=== PATIENT | female | born 1955 | race Caucasian/White ===

== ENCOUNTER 2018-08-11 12:06 | Outpatient (CLI) | payer OTHER, SELFPAY ==
[2018-08-11 12:53] LABS: Hemoglobin A1C 7.9 % (4.5-6.2)
[2018-08-11 13:01] LABS: Anion Gap 12.7 mmol/L (3-11); BUN 13 mg/dL (7-18); CO2 25.3 mmol/L (21.0-32.0); CREATININE 1.03 mg/dL (0.55-1.02); Chloride 101 mmol/L (98-107); Estimated GFR 54.48 (mL/min/1.73m2); Sodium 139 mmol/L (136-145)
== END 2018-08-11 12:26 ==
PROVIDERS: PCP General Practice; Visit Provider General Practice
DX: I10 Essential (primary) hypertension (principal); E10.9 Type 1 diabetes mellitus without complications
CPT/HCPCS: 36415; 80051; 84520; 82565; 83036

== ENCOUNTER 2018-10-29 09:21 | Emergency (ER) | payer OTHER, SELFPAY ==
[2018-10-29 09:25] VITALS: BP 144/88; PULSE 68; RESP 18; TEMP 36.2; O2SAT 98
--- NOTE | 2018-10-29 09:45 | W.ED.GENAD ---
Discharge Plan Disposition Patient Disposition: HOME Condition: Improving Discharge Details Chief Complaint: Orthopedic Clinical Impression: Arthritis of hip Primary Care Provider: Gabriele Dale ED Provider: Jethro Myrick Home Meds and New Rx's Prescriptions: New lidocaine [Lidoderm] 5 % adhesive patch,medicated 1 patch TP DAILY Qty: 5 RF: 0 oxycodone 5 mg capsule 5 mg PO Q8H PRN (Reason: Severe pain) Qty: 5 RF: 0 Continued tolterodine [Detrol LA] 4 MG capsule,extended release 24hr 4 mg PO DAILY Qty: 90 RF: 4 metformin 500 MG tablet 500 mg PO DAILY RF: 0 citalopram 20 MG tablet 40 mg PO DAILY RF: 0 pravastatin 80 MG tablet 80 mg PO DAILY RF: 0 furosemide [Lasix] 80 MG tablet 80 mg PO BID RF: 0 pioglitazone [Actos] 30 MG tablet 30 mg PO DAILY RF: 0 atenolol 50 MG tablet 100 mg PO DAILY RF: 0 glyburide [Diabeta] 5 MG tablet 10 mg PO BID RF: 0 estropipate 0.75 MG tablet 0.625 mg PO DAILY RF: 0 acetaminophen [Tylenol] 325 MG tablet 1,000 - 1,500 mg PO PRN MDD xtra strength tabs PRN (Reason: Pain) Qty: 0 RF: 0 potassium chloride [Klor-Con M10] 10 MEQ tablet,ER particles/crystals 20 meq PO TID Qty: 180 RF: 5 losartan 50 MG tablet 50 mg PO DAILY RF: 0 naproxen sodium [Aleve] 220 mg Tablet 220 - 440 mg PO PRN PRNRF: 0 Discharge Instructions Additional Instructions: Remove Lidoderm patch in 12 hours time. May apply again per prescription once every 24 hours for 12 hours Rest, ice, place leg in a position of comfort Please use a pillow between the knees while lying down to ease discomfort. Continue all regularly prescribed medications. May use the prescribed oxycodone for severe pain. As discussed please use a wheeled walker in the home. We have arranged for in-home physical therapy/Occupational Therapy. Return for worsening pain, involvement of the fever, or any other acute concern. Medical Decision Making 63-year-old female presents with intermittent right hip pain over approximately 2 months or greater time. Is worsening over the past 24 to 48 hours. She was ambulatory to the emergency department. She arrives afebrile, with essentially normal vital signs, the abnormalities being a blood pressure of 144/88. Given single oxycodone, Lidoderm patch, referred for x-ray to rule out underlying fracture, osteoarthritis, bony lesion. XR - no acute fracture, underlying bony arthritic changes. Pain improved with oral medication. Evaluated by physical therapy in the emergency department with recommended use of wheeled walker at home with in-home PT/OT which I have ordered. Care management consulted for sourcing of appropriate wheeled walker. Patient is also able to ambulate with much less difficulty. The patient understands home management. She is consented for the use of a small number of opiates for severe pain. She is stable for discharge to home HPI General Mode of arrival: ambulatory. Date/Time Provider Initiated Documentation: 10/29/18 09:22. Limitations to Documentation: no limitations. Information obtained by: patient. History of Present Illness 63 year old F presents to the emergency department with the chief complaint of Right hip pain intermittently for 2 months, worse overnight. Ambulatory., described as moderate, Quality is described as dull, and is localized to the right and lower extremity. Patient reports no radiation. Patient started experiencing this week(s) and it has been intermittent. No relieving factors improve symptom(s), Movement worsens symptoms . Patient notes no other symptoms. and other (No fall. No numbness, tingling); denies weakness. Patient did receive the following treatments prior to arrival, NSAID Related Data Home Medications Medication Instructions Recorded Confirmed atenolol 100 mg PO DAILY 09/03/12 10/29/18 citalopram 40 mg PO DAILY 09/03/12 10/29/18 estropipate 0.625 mg PO DAILY 09/03/12 10/29/18 furosemide [Lasix] 80 mg PO BID 09/03/12 10/29/18 glyburide [Diabeta] 10 mg PO BID 09/03/12 10/29/18 metformin 500 mg PO DAILY 09/03/12 10/29/18 pioglitazone [Actos] 30 mg PO DAILY 09/03/12 10/29/18 pravastatin 80 mg PO DAILY 09/03/12 10/29/18 potassium chloride [Klor-Con M10] 20 meq PO TID #180 tabcr 05/25/15 10/29/18 losartan 50 mg PO DAILY 08/06/16 10/29/18 tolterodine [Detrol LA] 4 mg PO DAILY #90 tab-cap 09/12/17 10/29/18 acetaminophen [Tylenol] 1,000 - 1,500 mg PO PRN PRN #0 tab 10/29/18 10/29/18 MDD xtra strength tabs lidocaine [Lidoderm] 1 patch TP DAILY #5 each 10/29/18 naproxen sodium [Aleve] 220 - 440 mg PO PRN PRN 10/29/18 10/29/18 oxycodone 5 mg PO Q8H PRN #5 cap 10/29/18 Previous Rx's Medication Instructions Recorded potassium chloride [Klor-Con M10] 20 meq PO TID #180 tabcr 05/25/15 tolterodine [Detrol LA] 4 mg PO DAILY #90 tab-cap 09/12/17 acetaminophen [Tylenol] 1,000 - 1,500 mg PO PRN PRN #0 tab 10/29/18 MDD xtra strength tabs lidocaine [Lidoderm] 1 patch TP DAILY #5 each 10/29/18 oxycodone 5 mg PO Q8H PRN #5 cap 10/29/18 Allergies Allergy/AdvReac Type Severity Reaction Status Date / Time Beta-Adrenergic Agents Allergy Unknown Unverified 10/29/18 09:38 enalapril maleate Allergy Unknown Unverified 10/29/18 09:38 [From Vasotec] enalaprilat dihydrate Allergy Unknown Unverified 10/29/18 09:38 [From Vasotec] Fish Containing Products Allergy Unknown Unverified 10/29/18 09:38 orange juice Allergy Unknown Unverified 10/29/18 09:38 Sulfa (Sulfonamide Allergy Unknown Unverified 10/29/18 09:38 Antibiotics) General Stated Complaint: Orthopedic MELISA: 3 Review of Systems Review of Systems 6 systems reviewed and otherwise negative. Similar pain in the past, left hip. History of sciatica. [facility] Medical History Diabetes Obesity, morbid, BMI 50 or higher ovarian cancer, stage 1A Surgical History Abdominal hysterectomy Cholecystectomy Oophrectomy, Both Family History Mother Essential hypertension Myocardial infarction Father Emphysema of lung Maternal Aunt Personal history of malignant neoplasm Social History Smoking/Tobacco Use Status: Never Drug use: Never Do you feel safe at home: Yes Do you feel safe in your relationship?: Yes Exam Narrative Exam Narrative: GEN: awake, alert, oriented 3. Pleasant, well groomed, interactive. HEAD: Normocephalic, atraumatic ENT: Mucous membranes moist, oropharynx unremarkable, External ear exam unremarkable EYES: PERRL, EOMI NECK: Full ROM, no BRENTON, no menigismus CHEST/RESP: Nontender, clear to auscultation bilateral, no wheeze/rhonchi/rales CARDIOVASCULAR: RRR, no murmur, rub kylah. 2+ Rad pulse bilateral ABDOMEN: Soft, nontender, no mass. +Bowel sounds EXT: Range of motion limited by pain. Right lateral hip pain. No sniffing and pain with internal and external rotation. Motor is intact but limited by pain on the right. 1+ DP bilaterally. Sensation intact throughout Neuro: Grossly normal neurologic exam, conversant, interactive. Psych: Speech fluent, thoughts congruent, affect normal Course Vital Signs Temperature 36.2 C L 10/29/18 09:25 Pulse 68 10/29/18 09:25 Respiratory Rate 18 10/29/18 09:25 Blood Pressure 144/88 H 10/29/18 09:25 Pulse Oximetry 98 10/29/18 09:25 Temperature 36.2 C L 10/29/18 09:25 Temperature Source Skin 10/29/18 09:25 Pulse 68 10/29/18 09:25 Respiratory Rate 18 10/29/18 09:25 Respiratory Effort 10/29/18 09:35 Blood Pressure 144/88 H 10/29/18 09:25 Pulse Oximetry 98 10/29/18 09:25 Oxygen Delivery Method Room Air 10/29/18 09:25 Oxygen Flow Rate 0 10/29/18 09:25 Pain Level 10 10/29/18 09:33 Comment 10/29/18 09:25
[2018-10-29] MEDS: Lidocaine 5% Patch 1 PATCH TP (09:53)
[2018-10-29] MEDS: oxyCODONE 5 mg/Acetaminophen 325 mg TAB 1 TAB PO (09:53)
--- NOTE | 2018-10-29 10:13 | DI.RAD_ITS ---
SYMPTOMS/DIAGNOSIS: PAIN RT HIP, NO ACUTE INJURY PELVIS AND RIGHT HIP: There has been a prior lower abdominal wall hernia repair. The hip joint spaces are well maintained. There is bilateral acetabular spurring as well as spurring from the greater trochanters and iliac wings. There is also some spurring from the SI joints. IMPRESSION: Degenerative changes. No acute abnormality.
[2018-10-29] MEDS: oxyCODONE 5 MG TAB PO (11:39)
--- NOTE | 2018-10-29 12:00 | PT.INIE ---
Date of service: 10/29/18 Time of Service: 11:02 PT Notes Inpatient Physical Therapy Evaluation Date: 10/29/2018 Referring Doctor: Jethro Myrick MD PT Orders: PT CONSULT: Arthritis, gait difficulty, question walker use Precautions: Fall. Standard. Patient Profile/Admitting Diagnosis: Patient is a 63-year-old female who presented to the ED on 10/29/2018 with chief complaints of right hip pain and difficulty with walking that has persisted for the past 2 months. Patient came in ambulatory to the ED, is afebrile and presented with normal vital signs. Physical therapy referral was made in order to determine need appropriate assistive device in order to reduce fall risk and promote continued performance of mobility ADLs at home. PMHX: Medical History Diabetes Obesity, morbid, BMI 50 or higher ovarian cancer, stage 1A Surgical History Abdominal hysterectomy Cholecystectomy Oophrectomy, Both Social History/Home Situation: Patient lives with and son in a 1 floor home with 2 steps to enter without a rail but with a grab bar to get in. Patient was independent with all aspects of ADLs without the need for an assistive ambulatory device nor adaptive equipment. Current Functional Limitations: Need for the use of an assistive ambulatory device for all mobility ADL performance due to persistent right hip pain Equipment Owned/DME: None Subjective: Patient is agreeable to a PT consult today. She would like to go home as soon as she is able to do so and is agreeable with the use of a front wheeled walker in order to offload right lower extremity during mobility ADL performance. She reports pain and discomfort on the right knee that went up to as high as 8/10 with standing and ambulation activity. Objective: General Observation: Patient seen lying down on an ICU bed. No lines present. Obese. Mental Status: Alert and oriented x4 Pain: 4/10 on the right hip with rest. 8/10 with movement and gait activity. ROM: Right Upper Extremity: Shoulder Flexion WFL. Shoulder abduction WFL. Elbow flexion WFL. Wrist flexion WFL. Functional opening and closing of hand WFL. Left Upper Extremity: Shoulder Flexion WFL. Shoulder abduction WFL. Elbow flexion WFL. Wrist flexion WFL. Functional opening and closing of hand WFL. Right Lower Extremity: Hip flexion WFL. Hip abduction WFL. Knee flexion WFL. Ankle dorsiflexion WFL. Ankle plantarflexion WFL. Left Lower Extremity: Hip flexion WFL. Hip abduction WFL. Knee flexion WFL. Ankle dorsiflexion WFL. Ankle plantarflexion WFL. Strength: Right Upper Extremity: Shoulder flexors 5/5. Shoulder abductors 5/5. Elbow flexors 5/5. Elbow extensors 5/5. Precision Devices Inspector/Tester strong. Left Upper Extremity: Shoulder flexors 5/5. Shoulder abductors 5/5. Elbow flexors 5/5. Elbow extensors 5/5. Precision Devices Inspector/Tester strong. Right Lower Extremity: Hip flexors 4-/5. Hip abductors 4-/5. Knee flexors 4-/5. Knee extensors 4-/5. Ankle dorsiflexors 5/5. Ankle plantarflexors 5/5. Left Lower Extremity:Hip flexors 5/5. Hip abductors 5/5. Knee flexors 5/5. Knee extensors 5/5. Ankle dorsiflexors 5/5. Ankle plantarflexors 5/5. Sensation: Intact as to pain and pressure on bilateral lower extremities. Bed Mobility/Transfers: Rolling independent Supine to sit independent Sit to supine independent Sit to stand independent Stand to sit independent Bed to chair independent Chair to bed independent Gait: Patient was able to tolerate up to 45 feet of level surface ambulation inside the ICU using walker with chest standby assist of this PT without loss of balance observed but with increased complaint of pain on the right hip at 7/10 that subsided back to 4/10 with rest. Balance: Static Sitting: Normal Dynamic Sitting: Normal Static Standing: Fair Dynamic Standing: Fair Special Tests: Mobility Limitations Standardized Measure [facility] 6 clicks Basic Mobility Inpatient Short Form: Raw Score: 23 CMS Score: 11% deficit Informed Consent/Education: Patient instructed in purpose of PT consult in order to determine safety for discharge to home. Assessment: Patient presents with clinical signs and symptoms consistent with current/admitting diagnoses that have resulted to mobility limitations, gait instability, generalized weakness, and impairment of motor control as demonstrated by the following impairment level findings: 1. Decreased strength to right hip major muscle groups 2. Impaired sitting/standing balance 3. Impaired activity tolerance Impairments are contributing to the following functional limitations: 1. Inability to safely ambulate without assistive device and physical assistance 2. Increase completion time for mobility ADL performance 3. Increased fall risk Patient is assessed as a 94427 moderate complexity based on the following: History: Patient is a 63-year-old obese female with premorbid independent level using no assistive device now presenting with right hip pain that limits mobility performance Examination: Demonstrable impairment in strength, balance, and range of motion with underlying impairments and functional limitations as documented above Presentation:Evolving Decision Makin moderate complexity DISCHARGE RECOMMENDATIONS: Patient goes home today with bariatric FWW. Patient will benefit from home health PT services in order to progress mobility level using least restrictive assistive ambulatory device/using no device, assess home safety, identify additional equipment needs, and establish a functional maintenance program that will increase ability of patient to remain at home. TREATMENT CODE/TIME: 85423 x 23 minutes beginning at 11:02 AM. Thank you very much for this referral. Maral Olivares PT, DPT, CLT [facility]
--- NOTE | 2018-10-29 13:29 | NUR.NOTE ---
pt provided with lunch tray while awaiting walker
[2018-10-29 14:10] VITALS: BP 138/79; PULSE 64; RESP 18; TEMP 36.4; O2SAT 97
== END 2018-10-29 14:20 | disposition home or self-care (01) ==
PROVIDERS: Emergency Provider Emergency Medicine; PCP General Practice
DX: M16.11 Unilateral primary osteoarthritis, right hip (principal); E11.9 Type 2 diabetes mellitus without complications
CPT/HCPCS: 36416; 82962; 97162; 99283; 73502

== ENCOUNTER → 2018-11-03 14:05 | Outpatient (BNVA) | payer OTHER, SELFPAY | PROVIDERS: PCP General Practice; Visit Provider Urology | DX: N39.46 Mixed incontinence (principal); E11.9 Type 2 diabetes mellitus without complications; Z79.84 Long term (current) use of oral hypoglycemic drugs; E66.9 Obesity, unspecified | CPT/HCPCS: 99213 ==

== ENCOUNTER → 2019-01-12 09:52 | Outpatient (BNVA) | payer OTHER, SELFPAY | PROVIDERS: PCP General Practice; Referring Provider General Practice; Visit Provider Orthopaedic Surgery | DX: M25.551 Pain in right hip (principal); M70.61 Trochanteric bursitis, right hip | CPT/HCPCS: 99201; 99213 ==

== ENCOUNTER → 2019-02-09 09:40 | Outpatient (BNVA) | payer OTHER, SELFPAY | PROVIDERS: PCP General Practice; Referring Provider General Practice; Visit Provider Orthopaedic Surgery | DX: M70.61 Trochanteric bursitis, right hip (principal); E11.9 Type 2 diabetes mellitus without complications; Z79.84 Long term (current) use of oral hypoglycemic drugs | CPT/HCPCS: 99213 ==

== ENCOUNTER 2019-03-08 14:15 | Outpatient (CLI) | payer OTHER, SELFPAY ==
[2019-03-08 15:26] LABS: Hemoglobin A1C 8.8 % (4.5-6.2)
[2019-03-08 15:38] LABS: Anion Gap 9.4 mmol/L (3-11); BUN 11 mg/dL (7-18); CO2 26.6 mmol/L (21.0-32.0); CREATININE 1.16 mg/dL (0.55-1.02); Chloride 104 mmol/L (98-107); Estimated GFR 47.34 (mL/min/1.73m2); Potassium 4.1 mmol/L (3.5-5.1); Sodium 140 mmol/L (136-145)
== END 2019-03-08 14:35 ==
PROVIDERS: PCP General Practice; Visit Provider General Practice
DX: R60.0 Localized edema (principal); I10 Essential (primary) hypertension; E11.9 Type 2 diabetes mellitus without complications
CPT/HCPCS: 36415; 80051; 84520; 82565; 83036

== ENCOUNTER 2019-03-22 02:14 | Outpatient (CLI) | payer OTHER, SELFPAY ==
--- NOTE | 2019-03-22 13:40 | NS.NUTBLAN_ITS ---
DESCRIPTION/ASSESSMENT: Rand Ricketts presents for nutrition consult for diabetes last seen a few years ago. Rand states she has not been taking care of herself as she knows she should and at times does not take her medication x 2 years. States she makes meat and vegetables for her , but does not eat them. She has a bag of candy she eats most of the day. Admits to being physically inactive although she walks well. Rand does not monitor her blood sugars. A1c 8.8 up from 7.2 taking Metformin, Actos, Glyburide. Rand describes stress and symptoms of depression (prescribed citalopram) with family stressors and demands from friends and family to take care of them in various ways. Rand hints at wanting to improve your health but does not exhibit or propose behaviors that will achieve this. INTERVENTION: Rand is engaged in this conversation but is easily side=tracked by describing stressful events in her life. Food Guidelines - discussed having protein and vegetable at least once a day to improve her nutritional intake. She is in the contemplative phase of change for improving nutrition. Physical Activity - Rand expresses no interest in moving more including chair exercises. Medication - discussed setting up a system to be sure her medication is taken. She declines this, but does say she will begin taking her medication. States she has a system that works for her. Monitoring: Rand declines monitoring her blood sugar as the art 'always high'. Today random blood sugar 225 without food. Stress: Rand does not sleep usual hours and states she sleeps about 3-4 hours a night; stays up late going to bed around 1AM. Rand feels she does not have good support and lost her best friend this year which leaves her feeling alone. States she has had a therapist in the past she liked. Expresses concern that her children take advantage of her. PLAN: Rand agrees to: take her medication daily try a vegetable and meat at least once a day reach out to therapist if she feels it would be helpful. ACTION PLAN: Individual MNT 50 minutes 3_ units billed No DM group education series being offered at this time.
--- NOTE | 2021-04-04 | DI.US_ITS ---
Exam(s) US BREAST LT COMPLETE EXAM: US BREAST LT COMPLETE CLINICAL HISTORY: Breast Lesion. TECHNIQUE: Complete ultrasound of the breast was performed including all 4 quadrants, the retroareo lar region, and the ipsilateral axilla. COMPARISON: Prior mammograms were reviewed. FINDINGS: Please refer to combined report IMPRESSION: Please refer to combined report BI-RADS Category 4 - Suspicious Abnormality: Biopsy should be considered Breast Density - Category B - Scattered areas of fibroglandular density Breast density Category C or D implies that the patient has dense breast tissue. Dense breast tissue can make it harder to find cancer on a mammogram. Dense breast tissue is also associated with an incr eased risk of breast cancer. This information about the result of the mammogram report was provided to the patient to raise their awareness. Use this report when you speak with the patient about their risks for breast cancer, which includes their family history. At that time, you may recommend additional screening tests (Ultrasoun d or MRI) as these tests may add significant information. A negative radiographic report should not delay biopsy if a dominant or clinically suspicious mass is present. Up to ten percent of cancers are not identified on mammography. A negative report may reinforce clinical impression. Adenosis and dense breasts may obscure an underlying neoplasm. False positive reports average 6 to 10%. Patient will receive a letter notifying them of these results.
== END 2019-03-22 02:34 ==
PROVIDERS: PCP General Practice; Visit Provider Dietitian, Registered
DX: E11.9 Type 2 diabetes mellitus without complications (principal); Z71.3 Dietary counseling and surveillance
CPT/HCPCS: 97802

== ENCOUNTER 2019-04-26 00:50 | Outpatient (CLI) | payer OTHER, SELFPAY ==
--- NOTE | 2019-04-26 13:09 | DI.MAMMO_ITS ---
EXAM: MG MAMMO SCREENING CLINICAL HISTORY: screening TECHNIQUE: Mammograms were interpreted according to the usual protocol including computer analysis w [facility] CAD system, tomosynthesis and C-view imaging. COMPARISON: Prior mammogram of June 2015 FINDINGS: The breasts are of moderate density with fairly symmetrical distribution of fibroglandular tissue. N o dominant mass identified in either breast. There are scattered predominantly dystrophic calcificat ions. There are groupings of loosely associated microcalcifications in the lateral aspect of the lef t breast, most of these appear benign but there are few are questionable tiny abebe-shaped microcalcifi cations, new since prior mammogram of June 2015. Additional evaluation with magnification spot comp ression views recommended. No other significant change seen. IMPRESSION: Additional mammographic views of the left breast requested to include magnification spot compression views as described above. Breast ultrasound recommended as well. Category 0, breast density categor y B. BI-RADS Cat 0 - Assessment Incomplete: Need additional imaging evaluation Breast Density - Category B - Scattered areas of fibroglandular density
== END 2019-04-26 01:10 ==
PROVIDERS: PCP Nurse Practitioner Family; Visit Provider Nurse Practitioner Family
DX: Z12.31 Encounter for screening mammogram for malignant neoplasm of breast (principal); R92.8 Other abnormal and inconclusive findings on diagnostic imaging of breast
CPT/HCPCS: 77063; 77067

== ENCOUNTER 2019-05-04 00:44 | Outpatient (CLI) | payer OTHER, SELFPAY ==
--- NOTE | 2019-05-04 10:27 | DI.MAMMO_ITS ---
EXAM: MG MAMMO SCREEN CALL BACK UNI CLINICAL HISTORY: F/U ABNORMAL MAMMO, GROUPINGS OF LOOSELY ASSOCIATED MICROCALCIFICATIONS IN LATERAL ASPECT OF LT BREAST. TECHNIQUE: Spot magnification views were performed of the upper and outer quadrant of the left breas t. COMPARISON: 2009 through the recent exam of April,. FINDINGS: The spot magnification views demonstrate coarse calcifications in the upper outer quadrant. No pleom orphic forms are seen. No mass is visible. IMPRESSION: 1. BI-RADS category 2, negative with benign findings. Coarse, benign-appearing calcifications in the upper outer quadrant appear unchanged. 2. Unless there is more urgent need, screening mammography is recommended, as per [employer] guidelines. BI-RADS Cat 2 - Benign Findings Breast Density - Category B - Scattered areas of fibroglandular density A negative radiographic report should not delay biopsy if a dominant or clinically suspicious mass is present. Up to ten percent of cancers are not identified on mammography. A negative report may reinforce clinical impression. Adenosis and dense breasts may obscure an underlying neoplasm. False positive reports average 6 to 10%. Patient will receive a letter notifying them of these results.
== END 2019-05-04 01:04 ==
PROVIDERS: PCP Nurse Practitioner Family; Visit Provider Nurse Practitioner Family
DX: Z12.31 Encounter for screening mammogram for malignant neoplasm of breast (principal); R92.8 Other abnormal and inconclusive findings on diagnostic imaging of breast; R92.1 Mammographic calcification found on diagnostic imaging of breast
CPT/HCPCS: 77063; 77067

== ENCOUNTER 2019-05-31 10:42 | Outpatient (REF) | payer OTHER, SELFPAY ==
[2019-05-31 19:44] LABS: PROTEIN 14.2 mg/dL
[2019-05-31 19:45] LABS: COMMENT (LAB VIEW ONLY) 135.93 mg/dL
[2019-05-31 19:47] LABS: COMMENT (LAB VIEW ONLY) 134.48 mg/dL; Microalb ug/mg Crea 24.6 ug/mg Cr
== END 2019-05-31 11:02 ==
LOC: NCHCN 10:42
PROVIDERS: PCP Nurse Practitioner Family; Visit Provider Nurse Practitioner Family
DX: E11.9 Type 2 diabetes mellitus without complications (principal); I10 Essential (primary) hypertension
CPT/HCPCS: 82043; 82565; 82570; 84156

== ENCOUNTER 2019-09-15 20:03 | Emergency (ER) | payer OTHER, SELFPAY ==
[2019-09-15 20:07] VITALS: BP 154/60; PULSE 99; RESP 20; TEMP 36.3; O2SAT 96
[2019-09-15] MEDS: Normal Saline 500 ML IV (20:30)
--- NOTE | 2019-09-15 20:35 | W.ED.GENAD ---
Discharge Plan Disposition Patient Disposition: HOME Condition: Good Discharge Details Chief Complaint: Abd Prob Clinical Impression: Gastroenteritis, Chronic back pain Primary Care Provider: Cosmo Easton ED Provider: Herb Taveras Home Meds and New Rx's Prescriptions: New lidocaine [Lidoderm] 1 PATCH patch 1 patch Topical Q24H Qty: 4 RF: 0 Continued citalopram [Celexa] 40 mg tablet 40 mg PO DAILY RF: 0 pioglitazone [Actos] 30 mg tablet 30 mg PO DAILY RF: 0 glyburide 5 mg tablet 10 mg PO BID RF: 0 pravastatin 80 mg tablet 80 mg PO DAILY RF: 0 furosemide [Lasix] 80 mg tablet 80 mg PO BID RF: 0 potassium chloride 10 mEq tablet extended release 20 meq PO TID RF: 0 metformin 500 mg tablet 500 mg PO DAILY RF: 0 tolterodine [Detrol LA] 4 mg capsule,extended release 24hr 4 mg PO DAILY RF: 0 atenolol 100 mg tablet 100 mg PO DAILY RF: 0 losartan 50 mg tablet 50 mg PO DAILY RF: 0 acetaminophen [Tylenol] 325 MG tablet 1,000 - 1,500 mg PO PRN MDD xtra strength tabs PRN (Reason: Pain) Qty: 0 RF: 0 naproxen sodium [Aleve] 220 mg Tablet 220 - 440 mg PO PRN PRNRF: 0 Discharge Instructions Instructions: Gastroenteritis (ED) Additional Instructions: At this time your CAT scan shows no evidence of significant life-threatening abnormality. Your laboratory work-up is notably reassuring. I do feel that you have mild symptoms of gastroenteritis, which could be from something you ate, mild virus, or some irritation in your stomach. I would recommend sticking with an easy diet for the next 3 to 5 days, bananas, rice, applesauce, and fluids. I would avoid taking naproxen for few days as this can certainly irritate your stomach and cause some of the symptoms that you are feeling. I would take Tylenol, 1000 mg every 6 hours if you do need it for pain. You can take the pain pill for your back if needed. I would recommend using the Lidoderm patches as prescribed. Take the Zofran for nausea if needed. If you notice any worsening of your symptoms, or any new symptoms such as vomiting, diarrhea, fever, chills, shortness of breath, chest pain, numbness, weakness, or fainting , please return immediately to the emergency department for reevaluation. Please follow up with your primary care provider as soon as possible for reassessment and reevaluation. As always, it was a pleasure participating in your medical care today. Referrals: Cosmo Easton NP [Primary Care Provider] - Discharge Data Discharge Date/Time-TO BE ENTERED AT DEPARTURE: 09/15/19 23:15 Medical Decision Making 63-year-old female with a past medical history of diabetes, hysterectomy, cholecystectomy, appendectomy, chronic back pain, morbid obesity, who presents today for evaluation of back pain and abdominal pain. Patient states that for the last 3 days she has had mild to moderate back pain which she states is identical to her previous episodes of back pain that she has fairly frequently. She states that earlier today she did develop some mild epigastric pain, those associated with 1 or 2 episodes of vomiting and some mild loose stools. She states that she did have some spaghetti and feels that this may have caused some of her symptoms. She states that recently her within the last few months which is been notably difficult for her, she has not been taking her regular medications consistently over the last 2 weeks. She denies any hematemesis, hemoptysis, melena, blood in her stool, or other complaints. She denies any recent antibiotics. She states that the pain is crampy in her epigastric region, she denies any fever or chills. Patient denies any saddle anesthesia, numbness or tingling in the groin, change in sensation when wiping. Patient denies any bowel or bladder incontinence, leakage, or retention. Patient denies any weakness in the lower extremities, atypical falls or imbalance. Exam demonstrates mild epigastric tenderness, mild midline low lumbar back pain, no other significant abnormalities on exam otherwise. Due to the patient's age, nausea vomiting diarrhea, with the epigastric pain do feel CT scan is indicated. We will gently rehydrate, get a proBNP for her mild pitting edema to make sure there is no fluid overload component. 11 PM Patient's laboratory work-up is returned, notably unremarkable, electrolytes normal, renal function stable, GFR slightly low, not a candidate for contrast study. Lactate relatively unremarkable. Troponin and EKG stable. proBNP normal. Lipase normal. Urinalysis shows no evidence of infection. Mild RBCs. Patient had CAT scan of the abdomen pelvis and back, no evidence of acute process, clinical symptoms inconsistent with cauda equina syndrome. On reassessment patient states that she is feeling better, back pain is improved with Lidoderm patch and Tylenol. No signs of an acute surgical abdomen. Symptoms inconsistent with cardiac etiology. At this time with no signs of acute life-threatening etiology, I do feel her symptoms may be secondary to mild gastroenteritis, more potential viral etiology. I had a long discussion with the patient as well as her daughter Zulay, at this time patient appears stable for discharge. However I had a long discussion with her and her daughter Zulay. Discussed the case. Patient will be discharged home. I had a long discussion with both the patient and the daughter discussing red flags which to immediately return. Patient was notably hesitant about narcotics, however after prolonged discussion we will give 4 [place] pills to go, as well as some Zofran for home use. Discussed the importance of a mild soft GI diet, close follow-up. I have extensively reviewed the treatment plan and discharge instructions with the patient and their family. I have addressed all patient concerns at this time. The patient and family was made aware of what symptoms to monitor for that would warrant a return to the emergency department. Discussed the plan with the patient and family, they demonstrate verbal understanding and agreement with our assessment and plan at this time. EKG 20: 18 Rate 99, sinus rhythm, incomplete right bundle branch block, no significant ST elevations or depressions, no evidence of STEMI. Review of prior EKG from 05/02/2015 demonstrates near identical findings. Inverted T wave in V1 was present then, as well as Q waves in lead III. No other significant acute changes. IMPRESSION: No acute abdominopelvic process detected. Thank you for allowing us to participate in the care of your patient. Dictated and Authenticated by: Nick Ryder MD 09/15/2019 10:05 PM Eastern Time ([place] & [place]) IMPRESSION: Multilevel central canal narrowing identified at lower thoracic and lumbar levels with no recent fractures or other acute bony injury detected at lumbar levels. Thank you for allowing us to participate in the care of your patient Dictated and Authenticated by: Nick Ryder MD 09/15/2019 9:59 PM Eastern Time ([place] & [place]) HPI General Date/Time Provider Initiated Documentation: 09/15/19 20:24. HPI Narrative: 63-year-old female with a past medical history of diabetes, hysterectomy, cholecystectomy, appendectomy, chronic back pain, morbid obesity, who presents today for evaluation of back pain and abdominal pain. Patient states that for the last 3 days she has had mild to moderate back pain which she states is identical to her previous episodes of back pain that she has fairly frequently. She states that earlier today she did develop some mild epigastric pain, those associated with 1 or 2 episodes of vomiting and some mild loose stools. She states that she did have some spaghetti and feels that this may have caused some of her symptoms. She states that recently her within the last few months which is been notably difficult for her, she has not been taking her regular medications consistently over the last 2 weeks. She denies any hematemesis, hemoptysis, melena, blood in her stool, or other complaints. She denies any recent antibiotics. She states that the pain is crampy in her epigastric region, she denies any fever or chills. Patient denies any saddle anesthesia, numbness or tingling in the groin, change in sensation when wiping. Patient denies any bowel or bladder incontinence, leakage, or retention. Patient denies any weakness in the lower extremities, atypical falls or imbalance. Related Data Home Medications Medication Instructions Recorded Confirmed acetaminophen [Tylenol] 1,000 - 1,500 mg PO PRN PRN #0 tab 10/29/18 03/25/19 MDD xtra strength tabs naproxen sodium [Aleve] 220 - 440 mg PO PRN PRN 10/29/18 09/15/19 atenolol 100 mg tablet 100 mg PO DAILY 03/12/19 09/15/19 citalopram 40 mg tablet 40 mg PO DAILY tab 03/12/19 09/15/19 furosemide 80 mg tablet 80 mg PO BID 03/12/19 09/15/19 glyburide 5 mg tablet 10 mg PO BID tab 03/12/19 09/15/19 losartan 50 mg tablet 50 mg PO DAILY 03/12/19 09/15/19 metformin 500 mg tablet 500 mg PO DAILY 03/12/19 09/15/19 pioglitazone 30 mg tablet 30 mg PO DAILY 03/12/19 09/15/19 potassium chloride 10 mEq 20 meq PO TID tab 03/12/19 09/15/19 tablet,extended release pravastatin 80 mg tablet 80 mg PO DAILY 03/12/19 09/15/19 tolterodine 4 mg capsule,extended 4 mg PO DAILY 03/12/19 09/15/19 release 24 hr lidocaine [Lidoderm] 1 patch TOPICAL Q24H #4 patch 09/15/19 Previous Rx's Medication Instructions Recorded acetaminophen [Tylenol] 1,000 - 1,500 mg PO PRN PRN #0 tab 10/29/18 MDD xtra strength tabs lidocaine [Lidoderm] 1 patch TOPICAL Q24H #4 patch 09/15/19 Allergies Allergy/AdvReac Type Severity Reaction Status Date / Time Beta-Adrenergic Agents Allergy Unknown Verified 09/15/19 20:15 enalapril maleate Allergy Unknown Verified 09/15/19 20:15 [From Vasotec] enalaprilat dihydrate Allergy Unknown Verified 09/15/19 20:15 [From Vasotec] Fish Containing Products Allergy Unknown Verified 09/15/19 20:15 orange juice Allergy Unknown Verified 09/15/19 20:15 Sulfa (Sulfonamide Allergy Unknown Verified 09/15/19 20:15 Antibiotics) General Stated Complaint: Abd Prob MELISA: 3 Review of Systems All systems reviewed & are unremarkable except as noted in HPI and below PFSH Medical History Depression (Chronic) Diabetes Hyperlipidemia (Acute) Hypertension (Chronic) Mixed stress and urge urinary incontinence (Acute) Obesity, morbid, BMI 50 or higher ovarian cancer, stage 1A Psoriasis (Chronic) Surgical History Abdominal hysterectomy 1995 Cholecystectomy Oophrectomy, Both Family History Mother Essential hypertension Myocardial infarction Father Emphysema of lung Maternal Aunt Personal history of malignant neoplasm colon Sister Rheumatoid arthritis Social History Smoking/Tobacco Use Status: Never Alcohol Intake: never Drug use: Never Household members: spouse Do you feel safe at home: Yes Do you feel safe in your relationship?: Yes Female Reproductive History Menstrual Menopause type: surgical History History 3 Para 3 Hx # Term Pregnancies Multiple births Hx # Pregnancies Ectopic pregnancies AB induced Hx Number of Living Children AB spontaneous Exam Narrative Exam Narrative: 1.Const: Well-nourished, Well-developed, appearing stated age, morbidly obese 2.Eyes: PERRL, no conjunctival injection, and symmetrical lids. 3.ENT: Atraumatic external nose and ears. Dry MM. Neck: Symmetric, trachea midline, No thyromegaly. 4.CVS: +S1/S2, No murmurs or gallops. Peripheral pulses 2+ and equal in all extremities. Brisk capillary refill in all extremities. 5.RESP: Unlabored respiratory effort. Clear to auscultation bilaterally. No wheezes rales or rhonchi 6.GI: Soft, nondistended, No hepatosplenomegaly. No guarding or rebound. No evidence of an acute surgical abdomen, mild pain in the epigastric region. 7.MSK: Normocephalic/Atraumatic, Extremities w/o deformity or ttp No cyanosis or clubbing, Normal movement of all extremities, mild pitting edema +1 bilaterally. Minimal midline tenderness lower lumbar region. Mild paraspinal tenderness as well. No other abnormalities. 8.Skin: Warm, Dry. No rashes or lesions. No evidence of lesion on the buttock or back. 9.Neuro: interventional cardiologist II-XII grossly intact. Sensation grossly intact, no focal neurologic deficits. 10.Psych: (AAO) x3. Appropriate mood and affect Course Vital Signs Vital signs: Vital Signs Temperature 36.3 C L 09/15/19 20:07 Pulse 99 H 09/15/19 20:07 Respiratory Rate 20 09/15/19 20:07 Blood Pressure 154/60 H 09/15/19 20:07 Pulse Oximetry 96 09/15/19 20:07 Temperature 36.3 C L 09/15/19 20:07 Temperature Source Temporal Artery Scan 09/15/19 20:07 Pulse 99 H 09/15/19 20:07 Respiratory Rate 20 09/15/19 20:07 Respiratory Effort 09/15/19 20:18 Blood Pressure 154/60 H 09/15/19 20:07 Blood Pressure Position Sitting 09/15/19 20:07 Pulse Oximetry 96 09/15/19 20:07 Oxygen Delivery Method Room Air 09/15/19 20:07 Oxygen Flow Rate 0 09/15/19 20:07 Pain Level 5 09/15/19 20:33
[2019-09-15 20:45] LABS: Abs Immature Grans 0.04 k/cumm (0.0-0.09); Absolute Eosinophil Count 0.18 k/cumm (0.0-0.7); Absolute Lymphocyte Count 1.27 k/cumm (1.2-3.4); Absolute Monocyte Count 0.45 k/cumm (0.11-0.7); Absolute Neutrophil Count 9.86 k/cumm (1.2-6.7); Eosinophils % 1.5; HGB 13.1 g/dL (12.0-15.5); Immature Grans % 0.3 %; Lactate 1.7 mmol/L (0.6-1.4); Lymphocytes % 10.8; Mean Corp. HGB Concentration 32.8 g/dL (32.0-36.0); Mean Corpuscular Hemoglobin 28.9 pg (27.0-33.0); Mean Corpuscular Volume 88.1 fL (80-95); Mean Platelet Volume 10.3 fL (8.0-11.0); Monocytes % 3.8; Neutrophils % 83.6; Platelet Count 231 x1000/uL (130-400); RBC 4.54 m/cumm (4.00-5.20); RBC Distribution Width 15.1 % (11.7-14.6)
[2019-09-15] MEDS: Lidocaine 5% Patch 1 PATCH TP (20:50)
[2019-09-15 20:58] LABS: Bilirubin Negative (Negative); Blood Small (Negative); Clarity Clear (Clear); Glucose 500 mg/dL (Negative); Ketones Trace mg/dL (Negative); Leukocyte Esterase Negative (Negative); Nitrite Negative (Negative); Specific Gravity 1.025 (1.005-1.025); pH 5.5 (5-8)
[2019-09-15] MEDS: ACETAMINOPHEN 1,000 MG/100 ML BTL 400 MG IVPB (20:58)
[2019-09-15 20:59] LABS: INR 1.1 (0.9-1.1); PTT Activated 23.9 sec (21.0-31.4)
[2019-09-15 21:12] LABS: ALT 31 U/L (14-59); AST 29 U/L (15-37); Albumin 3.3 g/dL (3.4-5.0); Alkaline Phosphatase 91 U/L (46-116); Anion Gap 8.8 mmol/L (3-11); BUN 17 mg/dL (7-18); Bilirubin, Total 0.9 mg/dL (0.2-1.0); CO2 26.2 mmol/L (21.0-32.0); CREATININE 1.19 mg/dL (0.55-1.02); Chloride 101 mmol/L (98-107); Estimated GFR 45.96 (mL/min/1.73m2); Glucose 294 mg/dL (74-106); Lipase 115 U/L (73-393); Potassium 4.4 mmol/L (3.5-5.1); Sodium 136 mmol/L (136-145); Total Protein 7.8 g/dL (6.4-8.2); Troponin I < 0.05 ng/mL (<0.06)
[2019-09-15 21:14] LABS: Bacteria Rare HPF (Negative); C & S Indicated? C&S Done As Ordered; Crystals Negative HPF (Negative); Epithelial Cells Moderate HPF (Negative); Mucus Moderate (Negative); WBC Negative HPF (0-5)
[2019-09-15 21:16] LABS: NT-proBNP 170 pg/mL (<300)
--- NOTE | 2019-09-15 21:35 | DI.CT_ITS ---
EXAM: CT ABDOMEN PELVIS WO and CT recons of the lumbar spine CLINICAL HISTORY: vomiting, epigastric abdominal pain. TECHNIQUE: Imaging Protocol: Axial computed tomography images with coronal and sagittal reformatted images were created and reviewed. COMPARISON: CT CT LUMBAR SPINE RECONS from 09/15/2019 FINDINGS: ABDOMEN: Lung Bases: No focal consolidating infiltrates. Cardiomegaly. Pericardial effusion. Liver: Normal density. No measurable mass. Liver has a somewhat nodular contour raising the question of hepatic cirrhosis. The liver is enlarged. Gallbladder and biliary tract: Status post cholecystectomy. No biliary ductal dilatation. Pancreas: Normal density, no abnormal calcifications or inflammatory process. Spleen: Splenomegaly. Kidneys: Normal size, contour and axis. No radiodense stones or obstructive uropathy. No masses seen. Adrenal glands: No mass is seen. Lymph nodes: Within normal limits. Abdominal Aorta: Abdominal portion non-dilated. Atherosclerosis. PELVIS: Bladder: Symmetric distention, no gross wall thickening. Bowel: No obstruction or bowel wall thickening. Colonic diverticulosis but no evidence of acute diver ticulitis. No evidence of an acute appendicitis. Peritoneal cavity: No ascites, collection or mesenteric inflammatory response. Anterior wall mesh. N o evidence of a recurrent anterior abdominal wall hernia. Reproductive organs: Status post hysterectomy. Bones: Degenerative changes in the lumbar spine. Soft Tissues: Within normal limits. Recons of the lumbar spine: No acute fractures or subluxations are present. Multilevel degenerative changes are present throughout the lumbar spine. Mild central spinal canal stenosis is seen at T11-T 12 and from L1-L2 to L4-L5. IMPRESSION: 1. No acute abdominal or pelvic process. 2. Multilevel degenerative changes in the lumbar spine. 3. No acute fracture or subluxation in the lumbar spine. RADIATION DOSE DELIVERED: Total DLP DATA REPOSITORY: All CT scans at this facility are submitted to the National Radiology Data Registry (NRDR) Dose Index Registry (DIR) with the [employer] ([employer]). RADIATION OPTIMIZATION: All CT scans at this facility use at least one of these dose optimization te chniques: automated exposure control; mA and/or kV adjustment per patient size (includes targeted exa ms where dose is matched to clinical indication); or iterative reconstruction.
[2019-09-15] MEDS: Omnipaque 350 MG/ML 50 ML BTL IJ (21:36)
[2019-09-15 21:45] VITALS: BP 141/75; PULSE 89; RESP 16; TEMP 36.2; O2SAT 95
--- NOTE | 2019-09-15 22:00 | DI.VRAD_ITS ---
PROCEDURE INFORMATION: Exam: CT Lumbar Spine Without Contrast Exam date and time: 09/15/2019 9:31 PM Age: 63 years old Clinical indication: Low back pain TECHNIQUE: Imaging protocol: Computed tomography images of the lumbar spine without contrast. Radiation optimization: All CT scans at this facility use at least one of these dose optimization techniques: automated exposure control; mA and/or kV adjustment per patient size (includes targeted exams where dose is matched to clinical indication); or iterative reconstruction. COMPARISON: No relevant prior studies available. FINDINGS: Vertebrae: Vertebral body height is intact throughout lumbar levels with no acute fractures or dislocations detected. There is moderate facet arthropathy at L4-L5 and L5-S1 with posterior elements intact throughout the remainder of the lumbar spine Discs/Spinal canal/Neural foramina: Posterior disc/osteophyte complex at T11-12 indents the ventral thecal sac resulting in canal stenosis and probable mass effect upon the ventral cord without severe cord compression. Posterior disc/osteophyte complexes indent the ventral thecal sac at L1-L2 and L2-L3 and there is associated mild central canal stenosis at the L2-L3 level. Mild canal stenosis also suspected at L3-L4 and L4-L5 with limited visualization of the spinal canal contents on this noncontrast CT examination. Soft tissues: Unremarkable. IMPRESSION: Multilevel central canal narrowing identified at lower thoracic and lumbar levels with no recent fractures or other acute bony injury detected at lumbar levels. Dictated and Authenticated by: Nick Ryder MD. Ordering:LORI Estevez MD
--- NOTE | 2019-09-15 22:06 | DI.VRAD_ITS ---
PROCEDURE INFORMATION: Exam: CT Abdomen And Pelvis Without Contrast Exam date and time: 09/15/2019 9:30 PM Age: 63 years old Clinical indication: Vomiting; Other: Epigastric pain; Patient HX: Po contrast given to patient. TECHNIQUE: Imaging protocol: Computed tomography of the abdomen and pelvis without contrast. Radiation optimization: All CT scans at this facility use at least one of these dose optimization techniques: automated exposure control; mA and/or kV adjustment per patient size (includes targeted exams where dose is matched to clinical indication); or iterative reconstruction. COMPARISON: CR XR hip RT complete AP pelvis 10/29/2018 10:10 AM FINDINGS: Heart: Lung bases: Heart is enlarged without pericardial effusion. Indistinct patchy ground-glass opacities are seen in both lung bases with no discrete mass or consolidation seen. Liver: Normal. No mass. Gallbladder and bile ducts: Gallbladder is surgically absent. Pancreas: Normal. No ductal dilation. Spleen: Normal. No splenomegaly. Adrenals: Normal. No mass. Kidneys and ureters: No renal mass or hydronephrosis. Stomach and bowel: Multiple diverticula involve the descending and sigmoid colonic segments without evidence of associated diverticulitis. Other segments of large and small bowel are unremarkable. Appendix: No evidence of appendicitis. Intraperitoneal space: Unremarkable. No free air. No significant fluid collection. Vasculature: Unremarkable. No abdominal aortic aneurysm. Lymph nodes: Unremarkable. No enlarged lymph nodes. Bladder: Unremarkable as visualized. Reproductive: Prior hysterectomy. Bones/joints: No recent fractures or other acute osseous lesions are detected at abdominopelvic levels. Soft tissues: Mesh graft seen in place along the undersurface of the ventral abdominal wall may relate to prior hernia repair. No evidence of recurrence ventral or other abdominal wall hernia. IMPRESSION: No acute abdominopelvic process detected. Dictated and Authenticated by: Nick Ryder MD. Ordering:LORI Estevez MD
[2019-09-15] MEDS: Ondansetron 4 MG/2 ML VIAL IVP (22:39)
[2019-09-15] MEDS: Ondansetron O.D.T. 4 MG TABEF, 3 TABS/BTL PO (23:11)
[2019-09-15] MEDS: Breeza Beverage 473 ML BTL PO (23:22)
== END 2019-09-15 23:15 | disposition home or self-care (01) ==
LOC: ER 23:28
PROVIDERS: Emergency Provider Student in an Organized Health Care Education/Training Program; PCP Nurse Practitioner Family
DX: R10.13 Epigastric pain (principal); K52.9 Noninfective gastroenteritis and colitis, unspecified; M54.5 Low back pain; G89.29 Other chronic pain; Z91.138 Patient's unintentional underdosing of medication regimen for other reason; E11.9 Type 2 diabetes mellitus without complications; Z79.84 Long term (current) use of oral hypoglycemic drugs; I10 Essential (primary) hypertension; E66.01 Morbid (severe) obesity due to excess calories; Z68.43 Body mass index [BMI] 50.0-59.9, adult
CPT/HCPCS: 36415; 51701; 80053; 83690; 93005; 96361; 96374; 96375; 99285; 74176; 81003; 81015; 83605; 83880; 84484; 85025; 85610; 85730; 87086; 93010; J0131; J2405; Q9967

== ENCOUNTER → 2019-12-14 07:58 | Outpatient (BNVA) | payer OTHER, SELFPAY | PROVIDERS: PCP Nurse Practitioner Family; Visit Provider Urology | DX: N39.46 Mixed incontinence (principal); E66.9 Obesity, unspecified; I10 Essential (primary) hypertension; E11.9 Type 2 diabetes mellitus without complications; Z68.43 Body mass index [BMI] 50.0-59.9, adult; L40.9 Psoriasis, unspecified | CPT/HCPCS: 99213 ==

== ENCOUNTER 2020-09-06 16:44 | Outpatient (REF) | payer OTHER, SELFPAY ==
[2020-09-06 16:44] LABS: Anion Gap 9.2 mmol/L (3-11); BUN 28 mg/dL (7-18); CO2 29.8 mmol/L (21.0-32.0); CREATININE 1.3 mg/dL (0.55-1.02); Calcium 9.3 mg/dL (8.5-10.1); Chloride 100 mmol/L (98-107); Estimated GFR 41.37 (mL/min/1.73m2); Glucose 170 mg/dL (74-106); Potassium 4.7 mmol/L (3.5-5.1); Sodium 139 mmol/L (136-145)
[2020-09-06 16:47] LABS: Hemoglobin A1C 7.7 % (<5.7)
== END 2020-09-06 16:45 | disposition home or self-care (01) ==
LOC: NCHCN 16:44
PROVIDERS: PCP Nurse Practitioner Family; Visit Provider Physician Assistant
DX: E11.9 Type 2 diabetes mellitus without complications (principal); R60.0 Localized edema
CPT/HCPCS: 80048; 83036

== ENCOUNTER 2020-09-14 12:04 | Outpatient (CLI) | payer OTHER, SELFPAY ==
--- NOTE | 2020-09-14 13:20 | DI.RAD_ITS ---
Exam(s) XR CHEST 2V PA LATERAL EXAM: XR CHEST 2V PA LATERAL CLINICAL HISTORY: COUGH, R05 TECHNIQUE: 2D digital imaging was performed. COMPARISON: CR CHEST 2 VIEWS PA,LAT from 06/30/2015 FINDINGS: The heart is mildly enlarged, unchanged. The aorta is not dilated. The lungs are well inflated and clear. No infiltrate or effusion is seen. Flowing osteophytes are noted in the spine. No compressi on fracture. IMPRESSION: No acute pulmonary findings. DATA REPOSITORY: RADIATION DOSE DELIVERED:
== END 2020-09-14 12:24 ==
PROVIDERS: PCP Nurse Practitioner Family; Visit Provider Physician Assistant Medical
DX: R05 Cough (principal)
CPT/HCPCS: 71046

== ENCOUNTER 2020-09-14 12:22 | Outpatient (REF) | payer OTHER, SELFPAY ==
[2020-09-15 12:09] LABS: COVID-19 RT-PCR UVMMC Result Negative (Negative)
== END 2020-09-14 12:23 | disposition home or self-care (01) ==
LOC: LBN 12:22
PROVIDERS: PCP Nurse Practitioner Family; Visit Provider Physician Assistant Medical
DX: Z20.822 Contact with and (suspected) exposure to COVID-19 (principal); R05 Cough
CPT/HCPCS: U0003

== ENCOUNTER 2021-01-01 15:01 | Outpatient (REF) | payer OTHER, SELFPAY ==
[2021-01-01 20:30] LABS: ALT 34 U/L (14-59); AST 32 U/L (15-37); Albumin 3.5 g/dL (3.4-5.0); Alkaline Phosphatase 99 U/L (46-116); Anion Gap 10.3 mmol/L (3-11); BUN 13 mg/dL (7-18); Bilirubin, Total 0.8 mg/dL (0.2-1.0); CO2 27.7 mmol/L (21.0-32.0); CREATININE 0.9 mg/dL (0.55-1.02); Calculated LDL 107 mg/dL (<100); Chloride 104 mmol/L (98-107); Cholesterol 176 mg/dL (<200); Glucose 212 mg/dL (74-106); HDL Cholesterol 40 mg/dL (40-60); Hemoglobin A1C 8.2 % (<5.7); Potassium 4.3 mmol/L (3.5-5.1); Sodium 142 mmol/L (136-145); Total Protein 7.8 g/dL (6.4-8.2); Triglyceride 149 mg/dL (<150)
[2021-01-01 20:53] LABS: COMMENT (LAB VIEW ONLY) 145.42 mg/dL
== END 2021-01-01 15:02 | disposition home or self-care (01) ==
LOC: NCHCN 15:01
PROVIDERS: PCP Nurse Practitioner Family; Visit Provider Physician Assistant
DX: E11.9 Type 2 diabetes mellitus without complications (principal)
CPT/HCPCS: 80053; 80061; 82043; 82570; 83036

== ENCOUNTER → 2021-01-11 10:28 | Outpatient (BNVA) | payer OTHER, SELFPAY | PROVIDERS: PCP Nurse Practitioner Family; Referring Provider Nurse Practitioner Family; Visit Provider Nurse Practitioner Gerontology | DX: N39.46 Mixed incontinence (principal) | CPT/HCPCS: 99213 ==

== ENCOUNTER 2021-02-15 01:54 | Outpatient (CLI) | payer OTHER, SELFPAY ==
[2021-02-15 10:14] VITALS: BP 142/82; PULSE 65; RESP 20; TEMP 36.2; O2SAT 95
[2021-02-15 10:40] VITALS: BP 142/82; PULSE 65; RESP 20; TEMP 36.2; O2SAT 95
[2021-02-15 11:06] VITALS: BP 138/64; PULSE 60; RESP 22; TEMP 36.3; O2SAT 95
[2021-02-15] MEDS: Normal Saline 500 ML 30 ML IV (11:09)
[2021-02-15] MEDS: Normal Saline Flush 10 ML SYR IVP (11:10)
[2021-02-15 11:41] VITALS: BP 140/84; PULSE 60; RESP 20; TEMP 36.4; O2SAT 95
[2021-02-15 12:15] VITALS: BP 149/84; PULSE 72; RESP 20; TEMP 36.1; O2SAT 95
== END 2021-02-15 01:55 | disposition home or self-care (01) ==
LOC: INF 01:54
PROVIDERS: PCP Physician Assistant; Visit Provider Family Medicine
DX: U07.1 COVID-19 (principal)
CPT/HCPCS: 96365

== ENCOUNTER 2021-03-22 01:43 | Outpatient (CLI) | payer OTHER, SELFPAY ==
--- NOTE | 2021-03-22 | DI.MAMMO_ITS ---
Exam(s) MAMMO SCREENING EXAM: MAMMO SCREENING CLINICAL HISTORY: SCREENING FOR BREAST CANCER Z12.39. TECHNIQUE: Bilateral full field digital CC and MLO mammographic images were obtained with 3D tomosyn thesis and utilizing computer aided detection (CAD). COMPARISON: Prior mammograms dating back to 2016, the most recent being April 2019. FINDINGS: Benign-appearing asymmetric densities in the right breast are again noted. In the left breast there benign-appearing micro and macro calcifications noted. However, anteriorly there is a new group of microcalcifications located 5 cm lateral to the nipple. This group of microc alcifications requires spot Mag view 2D technique There is no significant architectural distortion nor skin thickening-retraction. IMPRESSION: 1. Relatively stable benign-appearing right breast findings. 2. New microcalcification group anteriorly in the left breast, 5 cm lateral to the nipple. Spot Mag 2D views recommended. BI-RADS Category 0 - Assessment Incomplete: Need additional imaging evaluation Breast Density - Category B - Scattered areas of fibroglandular density Breast density Category C or D implies that the patient has dense breast tissue. Dense breast tissue can make it harder to find cancer on a mammogram. Dense breast tissue is also associated with an incr eased risk of breast cancer. This information about the result of the mammogram report was provided to the patient to raise their awareness. Use this report when you speak with the patient about their risks for breast cancer, which includes their family history. At that time, you may recommend additional screening tests (Ultrasoun d or MRI) as these tests may add significant information. A negative radiographic report should not delay biopsy if a dominant or clinically suspicious mass is present. Up to ten percent of cancers are not identified on mammography. A negative report may reinforce clinical impression. Adenosis and dense breasts may obscure an underlying neoplasm. False positive reports average 6 to 10%. Patient will receive a letter notifying them of these results.
== END 2021-03-22 02:03 ==
PROVIDERS: PCP Physician Assistant; Visit Provider Physician Assistant
DX: Z12.31 Encounter for screening mammogram for malignant neoplasm of breast (principal); R92.0 Mammographic microcalcification found on diagnostic imaging of breast
CPT/HCPCS: 77063; 77067

== ENCOUNTER 2021-04-04 00:25 | Outpatient (CLI) | payer OTHER, SELFPAY ==
--- NOTE | 2021-04-04 | DI.MAMMO_ITS ---
Exam(s) MAMMO DIAGNOSTIC UNI EXAM: MAMMO DIAGNOSTIC UNI -LEFT AND COMPLETE LEFT BREAST ULTRASOUND CLINICAL HISTORY: LEFT BREAST CALCIFICATIONS. TECHNIQUE: Unilateral spot mammographic images were obtained with 3D tomosynthesis technique and uti lizing computer aided detection (CAD). Both 2D and 3D technique cc views Complete left breast ultrasound was performed including all 4 quadrants as well as the retroareolar r egions. Left axilla was scanned. COMPARISON: Prior mammograms dating back to 2016, the most recent being 03/22/2021. FINDINGS: DIAGNOSTIC LEFT BREAST MAMMOGRAM: The new anteriorly located microcalcification group in the left misa ast is somewhat suspicious. Recommend biopsy. COMPLETE LEFT BREAST ULTRASOUND: At the 12 o'clock position is a 2 millimeter microcyst. There is also a 3 x 2 millimeters slightly t aller than wider nodular density with neutral through transmission. At the 1 o'clock position there are 2 findings which have the appearance of probable hemorrhagic micr ocysts measuring 5 and 3 millimeters. At 4 o'clock position there is a 2 millimeter benign microcyst. At the 8 o'clock position there is a 3 millimeter probable hemorrhagic microcyst. At 10 o'clock position there is a 3 millimeter finding which has appearance of a probable hemorrhagic microcyst. IMPRESSION: 1. Anteriorly located left breast microcalcification group exhibit some pleomorphism. Biopsy recomme nded. 2. Multiple ultrasound findings in left breast as described individually above. Repeat ultrasound in 3 months recommended. Findings discussed by myself with referring physician 04/05/2021 am BI-RADS Category 4 - Suspicious Abnormality: Biopsy should be considered Breast Density - Category B - Scattered areas of fibroglandular density Breast density Category C or D implies that the patient has dense breast tissue. Dense breast tissue can make it harder to find cancer on a mammogram. Dense breast tissue is also associated with an incr eased risk of breast cancer. This information about the result of the mammogram report was provided to the patient to raise their awareness. Use this report when you speak with the patient about their risks for breast cancer, which includes their family history. At that time, you may recommend additional screening tests (Ultrasoun d or MRI) as these tests may add significant information. A negative radiographic report should not delay biopsy if a dominant or clinically suspicious mass is present. Up to ten percent of cancers are not identified on mammography. A negative report may reinforce clinical impression. Adenosis and dense breasts may obscure an underlying neoplasm. False positive reports average 6 to 10%. Patient will receive a letter notifying them of these results.
== END 2021-04-04 00:45 ==
PROVIDERS: PCP Physician Assistant; Visit Provider Physician Assistant
DX: R92.8 Other abnormal and inconclusive findings on diagnostic imaging of breast (principal); R92.0 Mammographic microcalcification found on diagnostic imaging of breast
CPT/HCPCS: 76642; 77061; 77065; G0279

== ENCOUNTER → 2021-10-12 00:15 | Outpatient (CLI) | payer MEDICARE, OTHER, SELFPAY ==
--- NOTE | 2021-10-12 13:00 | DI.CT_ITS ---
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 COMPARISON: CT CT ABDOMEN PELVIS WO from 09/15/2019 FINDINGS: Tracheobronchial tree: No bronchiectasis or mucous plugging. Mediastinum and Aiyana: Enlarged right upper paratracheal lymph node, 11 x 22 millimeters.. 17 sly meter diameter precarinal node. Pulmonary parenchyma: No consolidation or dominant measurable mass. No pulmonary nodules. Pleura: No effusion or pneumothorax. Heart: The heart is not dilated. Mild coronary artery calcifications are seen. Aorta: Thoracic aorta non-dilated. Upper abdomen: Status post cholecystectomy. Bones: Prominent degenerative disc changes. No compression fracture or suspicious bony lesion. 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 Axilla: No enlarged lymph nodes. Soft tissues: Left breast skin thickening. 6.6 x 4.6 by 6.3 centimeter fluid collection in the left breast, presumed postsurgical seroma or hematoma. IMPRESSION: Enlarged right upper paratracheal and precarinal lymph nodes. Fluid collection left breast with appearance of a seroma or hematoma. RADIATION DOSE DELIVERED: 776.34mGy.cm Total DLP DATA REPOSITORY: All CT scans at this facility are submitted to the National Radiology Data Registry (NRDR) Dose Index Registry (DIR) with the [employer] (ACR). RADIATION OPTIMIZATION: All CT scans at this facility use at least one of these dose optimization te chniques: automated exposure control; mA and/or kV adjustment per patient size (includes targeted exa ms where dose is matched to clinical indication); or iterative reconstruction.
[2021-10-12 13:37] LABS: Estimated GFR 55.82 (mL/min/1.73m2)
[2021-10-12] MEDS: Omnipaque 350 MG/ML 100 ML BTL IJ (14:07)
== END ==
PROVIDERS: PCP Physician Assistant; Visit Provider Radiology Radiation Oncology
DX: C50.912 Malignant neoplasm of unspecified site of left female breast (principal); R59.0 Localized enlarged lymph nodes; M89.9 Disorder of bone, unspecified
CPT/HCPCS: 71260; 82565; J3490

== ENCOUNTER 2021-10-17 18:18 | Outpatient (REF) | payer MEDICARE, OTHER, SELFPAY ==
[2021-10-17 16:17] LABS: HCT 36.4 % (36.0-46.0); HGB 11.9 g/dL (11.2-15.7); MCH 29.8 pg (27.0-33.0); MCHC 32.7 % (32.0-36.0); MCV 91 fL (80-95); MPV 10.1 fL (8.0-11.0); Platelet Count 224 10^3/uL (130-400); RDW 14.1 % (11.7-14.6); RDW-SD 47.1 fL; WBC 9.86 10^3/uL (4.4-10.8)
[2021-10-17 16:47] LABS: ALT 27 U/L (14-59); AST 24 U/L (15-37); Albumin 3.2 g/dL (3.4-5.0); Alkaline Phosphatase 86 U/L (46-116); Anion Gap 10.5 mmol/L (3-11); BUN 20 mg/dL (7-18); Bilirubin, Total 0.6 mg/dL (0.2-1.0); CO2 26.5 mmol/L (21.0-32.0); CREATININE 1.1 mg/dL (0.55-1.02); Calcium 9.4 mg/dL (8.5-10.1); Calculated LDL 99 mg/dL (<100); Chloride 105 mmol/L (98-107); Cholesterol 182 mg/dL (<200); Estimated GFR 50.01 (mL/min/1.73m2); Glucose 128 mg/dL (74-106); HDL Cholesterol 45 mg/dL (40-60); Potassium 4.3 mmol/L (3.5-5.1); Sodium 142 mmol/L (136-145); TSH 3.96 uIU/mL (0.36-3.74); Total Protein 7.5 g/dL (6.4-8.2); Triglyceride 194 mg/dL (<150)
[2021-10-17 17:17] LABS: FREE T4 0.92 ng/dL (0.76-1.46)
== END 2021-10-17 18:19 | disposition home or self-care (01) ==
LOC: NCHCN 18:18
PROVIDERS: PCP Physician Assistant; Visit Provider Physician Assistant
DX: R53.83 Other fatigue (principal); E11.9 Type 2 diabetes mellitus without complications; I10 Essential (primary) hypertension; E78.5 Hyperlipidemia, unspecified
CPT/HCPCS: 80053; 80061; 85027; 84439; 84443

== ENCOUNTER → 2021-11-07 01:51 | Outpatient (CLI) | payer MEDICARE, OTHER, SELFPAY ==
--- NOTE | 2021-11-07 10:30 | DI.NM_ITS ---
Exam(s) NM BONE SCAN WHOLE BODY GRP EXAM: NM BONE SCAN WHOLE BODY GRP CLINICAL HISTORY: BREAST CANCER C50.912, LUCENCY LOWER T SPINE ON CT. TECHNIQUE: Injected Dose: 25 mCi Tc-99m MDP Delayed Images: 2-3 hours. COMPARISON: CT CT CHEST W from 10/12/2021 FINDINGS: Exam somewhat limited by the patient's body habitus. Bilateral renal excretion is identified. No focal area of intense suspicious uptake is seen. There is increased activity in both feet, left greater than left right, presumably related to degenerative changes. Increased activity in both acromioclavicular and sternoclavicular joints, consistent with d egenerative changes. No abnormal labeling in the thoracic or lumbar spine or pelvis. Increased soft tissue activity seen in the left breast related to previous radiation treatment. Increased soft tis charis activity in the lower legs consistent with venous stasis. IMPRESSION: 1. No evidence of metastatic disease. No abnormal labeling in the thoracic spine. DATA REPOSITORY:
== END ==
PROVIDERS: PCP Physician Assistant; Visit Provider Radiology Radiation Oncology
DX: C50.912 Malignant neoplasm of unspecified site of left female breast (principal)
CPT/HCPCS: 78306

== ENCOUNTER → 2022-01-09 11:01 | Outpatient (BNVA) | payer MEDICARE, OTHER, SELFPAY | PROVIDERS: PCP Physician Assistant; Referring Provider Physician Assistant; Visit Provider Nurse Practitioner Gerontology | DX: N39.46 Mixed incontinence (principal) | CPT/HCPCS: 99215 ==

== ENCOUNTER → 2022-04-18 11:31 | Outpatient (BNVA) | payer MEDICARE, OTHER, SELFPAY | PROVIDERS: PCP Physician Assistant; Referring Provider Physician Assistant; Visit Provider Physical Therapy Assistant | DX: Z12.11 Encounter for screening for malignant neoplasm of colon (principal) ==

== ENCOUNTER 2022-04-25 09:49 | Day surgery (SDC) | payer MEDICARE, OTHER, SELFPAY ==
--- NOTE | 2022-04-24 20:43 | W.PM.DSUDISC ---
Date of service: 04/25/22 Time of Service: 13:21 Discharge Plan Disposition Patient Disposition: Home Condition: Good Discharge Details Reason For Visit: Screening colonoscopy Attending Provider: Rodrigo Torres Primary Care Provider: Michael Pal Home Meds and New Rx's Prescriptions: Continued anastrozole 1 mg tablet 1 mg PO DAILY furosemide 40 mg tablet 40 mg PO DAILY Trulicity 0.75 mg/0.5 mL pen injector 0.75 mg subcut QWEEK atorvastatin [Lipitor] 20 mg tablet 20 mg PO DAILY citalopram [Celexa] 40 mg tablet 40 mg PO DAILY glyburide 5 mg tablet 10 mg PO BID potassium chloride 10 mEq tablet extended release 20 meq PO BID metformin 500 mg tablet 500 mg PO BID metoprolol succinate 100 mg tablet extended release 24 hr 100 mg PO DAILY valsartan 320 mg tablet 320 mg PO DAILY nystatin 100,000 unit/gram powder 1 applic topical BID acetaminophen [Tylenol] 325 MG tablet 1,000 - 1,500 mg PO PRN MDD xtra strength tabs PRN (Reason: Pain) Qty: 0 0RF naproxen sodium [Aleve] 220 mg Tablet 220 - 440 mg PO PRN PRN lidocaine [Lidoderm] 1 PATCH patch 1 patch Topical Q24H Qty: 4 0RF Discontinued bisacodyl [Dulcolax (bisacodyl)] 5 mg tablet,delayed release (DR/EC) 5 mg PO ONCE Qty: 4 0RF Rx Instructions: Take according to provider's instructions for colonoscopy prep. polyethylene glycol 3350 17 gram/dose powder 17 g PO ONCE Qty: 238 0RF Rx Instructions: To be taken as directed by prescriber's office for colonoscopy prep. Discharge Instructions Instructions: Colorectal Polyps (GEN), Diverticulosis Diet (GEN), Diverticulosis (GEN) Additional Instructions: 1. If tolerated, consume a soft, low fiber diet for 1-2 days. [address] not drive, drink alcohol, operate machinery, make critical decisions, or do activities that require coordination or balance for 24 hours. 3. Because air was put into your colon during the procedure, expelling air from your rectum (passing gas or farting) is normal. 4. You may not have a bowel movement for 1-3 days because of the colonoscopy prep. This is normal. 5. Go directly to the emergency room if you notice any of the following: Develop chills (warm to touch), or if you have a thermometer and your temperature is above 101 Difficulty breathing or difficultly swallowing Persistent vomiting Severe abdominal pain, other than gas cramps Severe chest pain Black, tarry stools Any bleeding ? exceeding one tablespoon 6. Call your physician if the site where your intravenous was started becomes red, swollen, painful, and warm to touch. 7. Your physician has reviewed your pre-procedure medications. Please continue to take those medications as previously ordered. You will be given specific information/education regarding any changes to your medications before leaving. Activity:: Activity as Tolerated Diet:: As Tolerated Discharge Orders Discharge Orders: Discharge Order (Routine); Ordered 04/24/22 Ordered By: Rodrigo Torres DS: Diagnosis Discharge Diagnosis (1) Screening for colon cancer: Status: Acute Asessment and Plan: Rand, we were able to complete a screening colonoscopy on you today. You had some mild diverticulosis. I also removed 2 polyps from your large intestine. I will contact you when I have the results of the pathology report.
--- NOTE | 2022-04-24 20:45 | W.COLOREPORT ---
Date of service: 04/25/22 Time of Service: 13:25 Colonoscopy Report Date of procedure: 04/25/22 Pre-op diagnosis general: Screening colonoscopy Post-op diagnosis procedure note: other (Colon polyps, diverticulosis) Procedure: Colonoscopy with polypectomy Surgeon: Rodrigo Torres Anesthesia Type: General:No Airway Estimated blood loss (mL): 10 Pathology: other (Cecal polyp, polyp at 90 cm from anus) Complications: None Disposition: same day Indications: Rand is a 66-year-old woman presenting for a screening colonoscopy Prep: Miralax/Dulcolax Procedure Start Time: 12:50 Procedure End Time: 13:14 Retraction Time: 15 Findings: Mild sigmoid diverticulosis, colon polyps x2 Procedure Description: After the induction of monitored anesthetic care, and with the patient in left lateral decubitus position, I began by performing an external anorectal exam.? Perineum and skin were normal, as was the anal verge.? There was no evidence of external hemorrhoids.? Next, I performed a digital rectal exam.? I did not appreciate any abnormal findings.? Next, I advanced a colonoscope into the rectal vault.? I performed retroflexion.? This was normal.? Using insufflation, I then advanced the colonoscope beyond the rectal folds and into the sigmoid colon before advancing towards the cecum.? There was mild sigmoid diverticulosis the quality of the prep was adequate.? The scope was noted to be in the cecum by identification of the ileocecal valve and appendiceal orifice.? There was a 0.5 cm polyp within the cecum. It was sessile. I removed it with cold forcep polypectomy. I then began withdrawing the colonoscope using repeated irrigation as necessary for full evaluation of the colonic mucosa. Around 90 cm from the anal verge I identified a 0.5 cm polyp. ?It appeared sessile in character. ?I was able to remove this with a cold forcep polypectomy. ?I examined the site, and there was minimal bleeding. ?Once this was completed, I continued to withdraw the scope and examine the remainder of the colonic mucosa.?Once the scope was withdrawn to the level of the rectum, great care was taken to examine portions of the rectal folds.? Finally, the scope was withdrawn and the patient was brought to the same-day surgery recovery unit as the anesthetic wore off. ?The findings and instructions were shared with the patient prior to discharge.
[2022-04-25 10:23] VITALS: BP 160/90; PULSE 74; RESP 18; TEMP 35.9; O2SAT 99
[2022-04-25] MEDS: Lactated Ringers 1,000 ML 80 ML IV (10:55)
--- NOTE | 2022-04-25 11:59 | W.ANESPRE ---
General Info Date of Service Date Performed: 04/25/22 Height: 5 ft 2 in Weight: 128.7 kg Body Mass Index (BMI): 51.9 Surgical Procedure: Operation Date: 04/25/22 11:50 Proposed Procedure Side Surgeon morales Torres MD Meds Allergies and Home Medications Allergies Allergy/AdvReac Type Severity Reaction Status Date / Time Beta-Adrenergic Agents Allergy Unknown Hives, Verified 04/25/22 10:30 sore throat enalapril maleate Allergy Unknown Hives Verified 04/25/22 10:30 [From Vasotec] enalaprilat dihydrate Allergy Unknown Hives Verified 04/25/22 10:30 [From Vasotec] Fish Containing Products Allergy Unknown N/V Verified 04/25/22 10:30 orange juice Allergy Unknown Hives Verified 04/25/22 10:30 Sulfa (Sulfonamide Allergy Unknown Hives Verified 04/25/22 10:30 Antibiotics) Home Medication Medication Instructions Recorded acetaminophen 325 mg tablet 1,000 - 1,500 mg PO PRN PRN Pain 10/29/18 (Tylenol) #0 tabs naproxen sodium 220 mg tablet 220 - 440 mg PO PRN PRN 10/29/18 (Aleve) citalopram 40 mg tablet (Celexa) 40 mg PO DAILY 03/12/19 glyburide 5 mg tablet 10 mg PO BID 03/12/19 lidocaine 5 % topical patch 1 patch topical Q24H #4 patches 09/15/19 (Lidoderm) atorvastatin 20 mg tablet (Lipitor) 20 mg PO DAILY 01/11/21 dulaglutide 0.75 mg/0.5 mL 0.75 mg subcut QWEEK 01/11/21 subcutaneous pen injector (Trulicity) furosemide 40 mg tablet 40 mg PO DAILY 01/11/21 metformin 500 mg tablet 500 mg PO BID 01/11/21 potassium chloride 10 mEq 20 meq PO BID 01/11/21 tablet,extended release metoprolol succinate 100 mg 100 mg PO DAILY 11/22/21 tablet,extended release 24 hr nystatin 100,000 unit/gram topical 1 applic topical BID 11/22/21 powder valsartan 320 mg tablet 320 mg PO DAILY 11/22/21 anastrozole 1 mg tablet 1 mg PO DAILY 04/18/22 Current Visit Medications: Current Medications Generic Name Dose Route Start Last Admin Trade Name Freq PRN Reason Stop Dose Admin Hyoscyamine Sulfate 0.125 mg 04/24/22 20:47 Hyoscyamine 0.125 Mg Sl/Oral/Chew SL DIRECTED PRN Ringer's Solution 1,000 mls @ 80 mls/hr 04/25/22 06:00 04/25/22 10:55 IV 05/24/22 23:59 80 mls/hr INFUSION PAULINA Administration IV Miscellaneous Supplies 1 each 04/25/22 06:00 Iv Access IV 05/24/22 23:59 DIRECTED PAULINA Ondansetron HCl 4 mg 04/24/22 20:47 Ondansetron 4 Mg/2 Ml Vial IVP Q4H PRN PRN Nausea / Vomiting Sodium Chloride 0 ml 04/25/22 06:00 Normal Saline Flush 10 Ml Syr IV 05/24/22 23:59 PRN PRN Sodium Chloride 0 ml 04/25/22 06:00 Normal Saline 10 Ml Vial IJ 05/24/22 23:59 DIRECTED PRN Sterile Water 0 ml 04/25/22 06:00 Water,Injection,Sterile 10 Ml Vial IJ 05/24/22 23:59 DIRECTED PRN PFSH Active Problems Active Problems: Problem Status Onset Code Mixed stress and urge urinary incontinence N39.46 Hypertension I10 Depression F32.9 Hyperlipidemia E78.5 Diabetes E11.9 Screening for colon cancer Z12.11 Fatigue R53.83 Arthritis M19.90 Family history of colon cancer Z80.0 Medical History Medical History Breast cancer Diabetes Edema ovarian cancer, stage 1A Psoriasis Surgical History Surgical History Abdominal hysterectomy 1995 Cholecystectomy Hx of lumpectomy Oophrectomy, Both Tobacco Smoking/Tobacco Use Status: Never Alcohol Alcohol Intake: never Substance Use Substance use: Never Substance use type: does not use Prental History History 3 Para 3 Hx # Term Pregnancies Multiple births Hx # Pregnancies Ectopic pregnancies AB induced Hx Number of Living Children AB spontaneous Vital Signs and Lab Results Vital Signs Most Recent Vital Signs in EMR: Most Recent Vital Signs Temp Pulse Resp BP Pulse Ox 35.9 C L 74 18 160/90 H 99 04/25/22 10:23 04/25/22 10:23 04/25/22 10:23 04/25/22 10:23 04/25/22 10:23 Point of Care Results Point of Care Results: Finger Stick Blood Glucose 154 04/25/22 10:43 Lab Results Blood Type / Crossmatch: No Data to Display Complete Blood Count: No Data to Display Complete Metabolic Panel: No Data to Display Liver Function Panel: No Data to Display Coagulation Panel: No Data to Display Cardiac Panel: No Data to Display Arterial Blood Gas: No Data to Display Venous Blood Gas: No Data to Display Pancreas Panel: No Data to Display Thyroid Panel: No Data to Display Infectious Disease: No Data to Display Blood Cultures: No Data to Display Toxicology Panel: No Data to Display Anesthesia Assessment and Plan Anesthesia History Personal History: No History of Anesthesia Complications Family History: No Family History of Anesthesia Complications Exercise Tolerance Exercise Tolerance: Metabolic Equivalents<4 Pertinent Negatives Pertinent Negatives: No Symptoms of GERD and No History of CVA/TIA Cardiac & Pulmonary Exam Cardiac Exam: Normal S1/S2 Heart Sounds Pulmonary Exam: Clear Bilateral Breath Sounds Implantable Cardiac Device Does patient have a Pacemaker or an ICD?: No Airway Exam Known Difficult Airway: No Mallampati Class: 2 Mouth Opening: Normal (> 3cm) Thyromental Distance: Greater than 3 cm Neck Range of Motion: Full ROM Neck Circumference: Normal Teeth Condition: Generalized Poor Dentition ASA Classification ASA Score: ASA 2 Emergency Case?: No NPO Status NPO Status: NPO Clears >2 hours, Solids >8 hours Anesthesia Plan Resuscitation Status: Full Code Anesthesia Technique: General Anesthesia Airway Planned: Natural Airway Monitors Used: Standard Monitors
[2022-04-25 12:02] VITALS: BMI 51.9
--- NOTE | 2022-04-25 13:08 | BOWEL_PTH ---
PATIENT: Rand Lawton LOC: [facility] U#:[id number] AGE/SX: 66/F ROOM: RE04/25/[address]: Rodrigo Torres MD : [id number] BED: DIS: 04/25/2022 SPEC #: [id number] RECD: 04/25/22 17:38 STATUS: TODD REQ #: [id number] RAKEL: 04/25/22 13:[address]: Rodrigo Torres DEPT: Surgical Specimen RECD BY: Chrystal Becerril ENTERED: 04/25/22 17:38 SP TYPE: Bowel OTHR DR: Michael Pal Tissues: 1 - BIOPSY BOWEL 2 - BIOPSY BOWEL Procedures: GROSS AND MICRO LEVEL 4 Comments: [id number]
[2022-04-25 13:22] VITALS: BP 104/51; PULSE 76; RESP 16; TEMP 36.3; O2SAT 94
[2022-04-25 14:02] VITALS: BP 138/54; PULSE 70; RESP 18; TEMP 36.2; O2SAT 98
--- NOTE | 2022-04-25 15:12 | W.ANESPOSTOP ---
Postoperative Evaluation Date, Time and Location Date Performed: 04/25/22 Time Performed: 15:12 Patient Location: Day Surgery Unit Vital Signs Most Recent Imported Vital Signs: Most Recent Vital Signs Temp Pulse Resp BP Pulse Ox 36.2 C L 70 18 138/54 L 98 04/25/22 14:02 04/25/22 14:02 04/25/22 14:02 04/25/22 14:02 04/25/22 14:02 Pain Score Most Recent Pain Score: Most Recent Pain Score Pain Level 0 04/25/22 14:02 Assessment Mental Status: Awake (Alert & Oriented to Patient Baseline) Airway and Respiratory Function: Patent airway with normal (patient baseline) respiratory exam Cardiovascular Function: Hemodynamically Stable Hydration Status: Adequately Hydrated Nausea & Vomiting: No Nausea or Vomiting Pain: Pt. Denies Any Pain Peripheral Nerve Block: Patient did not receive a nerve block
== END 2022-04-25 14:33 | disposition home or self-care (01) ==
PROVIDERS: PCP Physician Assistant; Visit Provider Surgery
PROC: 0DJD8ZZ Inspection of Lower Intestinal Tract, Via Natural or Artificial Opening Endoscopic (ICD-10-PCS; CPT 45378; principal; 2022-04-25 11:45)
DX: Z12.11 Encounter for screening for malignant neoplasm of colon (principal); K63.5 Polyp of colon; K57.30 Diverticulosis of large intestine without perforation or abscess without bleeding; E11.9 Type 2 diabetes mellitus without complications; E66.01 Morbid (severe) obesity due to excess calories; Z68.43 Body mass index [BMI] 50.0-59.9, adult
CPT/HCPCS: 45380; 88305; J2704

== ENCOUNTER 2022-05-07 01:32 | Outpatient (CLI) | payer MEDICARE, OTHER, SELFPAY ==
[2022-05-07 11:46] LABS: Estimated GFR 62.52 (mL/min/1.73m2)
--- NOTE | 2022-05-07 12:19 | DI.CT_ITS ---
Exam(s) CT CHEST W EXAM: CT CHEST W CLINICAL HISTORY: F/U PREV CT,MILDLY ENLARGED RT PARATRACHEAL,INTRAMAM NODE,R59.0 TECHNIQUE: Imaging Protocol: Axial computed tomography images with coronal and sagittal reformatted images were created and reviewed CONTRAST MATERIAL: Intravenous: Omnipaque 350Contrast volume:7 mL. COMPARISON: CT CT CHEST W from 10/12/2021 FINDINGS: Tracheobronchial tree: Patent where visualized. Pulmonary parenchyma: No consolidation or dominant measurable mass. No architectural distortion. Mediastinum and Aiyana: There is again seen a 1.2 x 2.1 cm right paratracheal lymph node. There is aga in seen a 1.5 cm pre carinal lymph node. No new mediastinal adenopathy is identified. The esophagus is unremarkable. Thyroid gland: Unremarkable. Pleura: No effusion or pneumothorax. Heart: The heart is not dilated. Mild coronary artery calcification is present. No pericardial effusi on. Aorta: Thoracic aorta non-dilated. There is mild atherosclerosis. Pulmonary arteries: Due to the timing of the bolus pulmonary artery evaluation for pulmonary emboli i s suboptimal. No large central pulmonary embolus is identified. Upper abdomen: Status post cholecystectomy. Lymph nodes: Within normal limits. Bones: Within normal limits for the patient's age. There is chronic deformity of the medial right cl avicle. No aggressive osseous lesions are identified. Soft tissues: There has been interval decrease in size of the left breast fluid collection now measur ing 3.5 x 2.3 cm. This compares to a 6.6 x 4.6 x 6.3 cm. There is again seen mild skin thickening of the left breast. IMPRESSION: 1. Stable mediastinal lymph nodes. No new thoracic adenopathy. 2. Interval decrease in size of the left breast fluid collection which may represent a postoperative seroma. RADIATION DOSE DELIVERED: 824.6mGy.cm Total DLP DATA REPOSITORY: All CT scans at this facility are submitted to the National Radiology Data Registry (NRDR) Dose Index Registry (DIR) with the [employer] (ACR). RADIATION OPTIMIZATION: All CT scans at this facility use at least one of these dose optimization te chniques: automated exposure control; mA and/or kV adjustment per patient size (includes targeted exa ms where dose is matched to clinical indication); or iterative reconstruction.
[2022-05-07] MEDS: Omnipaque 350 MG/ML 500 ML BTL-Imaging package 70 ML IJ (12:36)
[2022-05-07] MEDS: Normal Saline Flush 10 ML SYR IVP (12:38)
== END 2022-05-07 01:52 ==
LOC: DI 01:33
PROVIDERS: PCP Physician Assistant; Visit Provider Radiology Radiation Oncology
DX: Z01.812 Encounter for preprocedural laboratory examination (principal); R59.0 Localized enlarged lymph nodes; N64.59 Other signs and symptoms in breast
CPT/HCPCS: 71260; 82565

== ENCOUNTER 2022-05-08 11:53 | Outpatient (CLI) | payer MEDICARE, OTHER, SELFPAY ==
[2022-05-08 12:25] LABS: Estimated GFR 62.52 (mL/min/1.73m2)
== END 2022-05-08 11:54 | disposition home or self-care (01) ==
PROVIDERS: PCP Physician Assistant; Visit Provider Radiology Radiation Oncology
DX: R59.0 Localized enlarged lymph nodes (principal)
CPT/HCPCS: 36415; 82565

== ENCOUNTER → 2022-06-24 10:06 | Outpatient (BNVA) | payer MEDICARE, OTHER, SELFPAY | PROVIDERS: PCP Physician Assistant; Referring Provider Physician Assistant; Visit Provider Student in an Organized Health Care Education/Training Program | DX: M65.342 Trigger finger, left ring finger (principal) | CPT/HCPCS: 99213 ==

== ENCOUNTER 2022-07-03 08:28 | Day surgery (SDC) | payer MEDICARE, OTHER, SELFPAY ==
[2022-07-03 08:30] VITALS: BP 165/75; PULSE 78; RESP 18; TEMP 36; O2SAT 97
[2022-07-03] MEDS: Lidocaine 1% Pres-Free W/EPI 1/200,000 10 ML VIAL (10:40)
[2022-07-03] MEDS: Sodium Bicarbonate 50 MEQ/50 ML VIAL (10:40)
--- NOTE | 2022-07-03 10:43 | W.PM.DSUDISC ---
Date of service: 07/03/22 Time of Service: 10:43 Discharge Plan Disposition Patient Disposition: Home Condition: Good Discharge Details Reason For Visit: LRF trigger release Attending Provider: Derek Baxter Primary Care Provider: Michael Pal Home Meds and New Rx's Prescriptions: New acetaminophen 500 mg tablet 1,000 mg PO TID Qty: 90 0RF ibuprofen 600 mg tablet 600 mg PO TID PRN (Reason: pain) Qty: 90 0RF Continued anastrozole 1 mg tablet 1 mg PO DAILY furosemide 40 mg tablet 40 mg PO DAILY atorvastatin [Lipitor] 20 mg tablet 20 mg PO DAILY citalopram [Celexa] 40 mg tablet 40 mg PO DAILY glyburide 5 mg tablet 10 mg PO BID metoprolol succinate 100 mg tablet extended release 24 hr 100 mg PO DAILY valsartan 320 mg tablet 320 mg PO DAILY nystatin 100,000 unit/gram powder 1 applic topical BID Trulicity 1.5 mg/0.5 mL pen injector 1.5 mg subcut QWEEK potassium chloride 10 mEq tablet extended release 10 meq PO BID lidocaine [Lidoderm] 1 PATCH patch 1 patch Topical Q24H Qty: 4 0RF Discontinued acetaminophen [Tylenol] 325 MG tablet 1,000 - 1,500 mg PO PRN MDD xtra strength tabs PRN (Reason: Pain) Qty: 0 0RF naproxen sodium [Aleve] 220 mg Tablet 220 - 440 mg PO PRN PRN Discharge Instructions Stand Alone Forms: Vee Argueta Finger Release Activity:: Activity as Tolerated Remove Dressings/Wound Care:: 48 hours Shower/Bathe:: 48 hours Diet:: As Tolerated Discharge Orders Discharge Orders: Discharge Order (Routine); Ordered 07/03/22 Ordered By: Derek Baxter DS: Diagnosis Discharge Diagnosis (1) Trigger finger, left ring finger: Status: Acute
[2022-07-03 10:47] VITALS: BP 159/94; PULSE 72; RESP 18; TEMP 36; O2SAT 99
--- NOTE | 2022-07-03 10:48 | W.PM.OP ---
Date of service: 07/03/22 Time of Service: 10:55 Operative Note Operative Note DATE OF PROCEDURE: 07/03/22 PRE-OP DIAGNOSIS: Left Ring Finger Trigger Finger POST-OP DIAGNOSIS: same PROCEDURE: Trigger Finger Release - Left Ring Finger SURGEON: Derek Baxter ANESTHESIA TYPE: Local By Surgeon Refer to Anesthesia Record PATHOLOGY: none sent COMPLICATIONS: None Patient was transported to: same day Patient's condition: stable Indications: I have seen Rand in clinic for symptoms of a trigger finger. The catching, clicking, locking, and pain limited function. The diagnosis of trigger finger was evident. The symptoms had not responded to conservative measures. I discussed trigger finger release with the patient. I reviewed the risks of the procedure to include, but not limited to, bleeding, infection, pain, stiffness, incomplete release, damage to nerves or vessels, continued catching, recurrence. Despite these risks, the patient elected to proceed. Findings: There was a tightened A1 dash which was released. The flexor tendons were inspected and the patient was able to move the finger without any catching, clicking, or locking. Procedure Description: Rand was greeted in the preoperative holding area where the correct side was identified and marked. The consent was reviewed with the patient and signed. All questions were answered. She was taken back to the operating room. The patient was placed into the supine position on the operating room table with the left arm on an arm board. All bony prominences were well padded. No prophylactic antibiotics were administered since this was a clean, elective hand surgical case. The left arm was then prepped with Chloraprep and draped in a standard fashion with stockinette and extremity drape. A timeout to confirm correct identity, side and site, procedure, allergies, anesthesia, and medical concerns was performed. The surgical site was marked as a longitudinal incision directly over the A1 dash of the involved digit. This was confirmed with palpation during finger flexion. This area, overlying the metacarpal head, was then anesthetized with 1% Lidocaine. The patient tolerated this well and once the anesthetic had setup, the procedure began. A longitudinal incision was made through skin only, approximately 1cm. The deep tissues were dissected bluntly. Once the A1 dash and flexor tendons were identified the soft tissue including neurovascular structures were retracted medially and laterally. There were no crossing structures over the A1 dash. The proximal edge of the dash was identified and the dash was incised with tenotomy scissors. There was a release of the tendons once this was fully released. The tendons were then removed from the wound and inspected. The tendons were then returned and the patient was asked to move the finger into deep flexion and back to extension. There was no recreation of the pre-operative symptoms. The hand was then once more inspected for any A0 dash or area of possible constriction. The wound was then irrigated and the skin was closed with a 4-0 Nylon. This was dressed with gauze and a Conform dressing. The patient tolerated the procedure well and was returned to the Same Day Surgery area in a stable condition suffering no known complication.
== END 2022-07-03 11:15 | disposition home or self-care (01) ==
PROVIDERS: PCP Physician Assistant; Visit Provider Student in an Organized Health Care Education/Training Program
PROC: (CPT 26055; principal; 2022-07-03 11:00)
DX: M65.342 Trigger finger, left ring finger (principal)
CPT/HCPCS: 26055

== ENCOUNTER → 2022-07-12 09:46 | Outpatient (BNVA) | payer MEDICARE, OTHER, SELFPAY | PROVIDERS: PCP Physician Assistant; Referring Provider Physician Assistant; Visit Provider Student in an Organized Health Care Education/Training Program | DX: M79.642 Pain in left hand (principal); Z47.89 Encounter for other orthopedic aftercare ==

== ENCOUNTER 2022-09-24 14:45 | Outpatient (REF) | payer MEDICARE, OTHER, SELFPAY ==
[2022-09-24 15:48] LABS: COMMENT (LAB VIEW ONLY) 177.49 mg/dL; Microalb ug/mg Crea 10.9 ug/mg Cr
== END 2022-09-24 14:46 | disposition home or self-care (01) ==
LOC: NCHCN 14:45
PROVIDERS: PCP Physician Assistant; Visit Provider Physician Assistant
DX: E11.9 Type 2 diabetes mellitus without complications (principal)
CPT/HCPCS: 82043; 82570

== ENCOUNTER → 2023-01-08 12:41 | Outpatient (BNVA) | payer MEDICARE, OTHER, SELFPAY | PROVIDERS: PCP Physician Assistant; Visit Provider Nurse Practitioner Gerontology | DX: N39.46 Mixed incontinence (principal); E11.9 Type 2 diabetes mellitus without complications; I10 Essential (primary) hypertension; Z91.148 Patient's other noncompliance with medication regimen for other reason | CPT/HCPCS: 99213 ==

== ENCOUNTER 2023-04-17 14:32 | Outpatient (REF) | payer MEDICARE, OTHER, SELFPAY ==
[2023-04-17 17:02] LABS: ALT 40 U/L (14-59); AST 31 U/L (15-37); Albumin 3.3 g/dL (3.4-5.0); Alkaline Phosphatase 121 U/L (46-116); Anion Gap 6.2 mmol/L (3-11); BUN 20 mg/dL (7-18); Bilirubin, Total 0.7 mg/dL (0.2-1.0); CO2 26.8 mmol/L (21.0-32.0); CREATININE 1.1 mg/dL (0.55-1.02); Calcium 9.4 mg/dL (8.5-10.1); Calculated LDL 138 mg/dL (<100); Chloride 103 mmol/L (98-107); Cholesterol 223 mg/dL (<200); Estimated GFR 55.42 (mL/min/1.73m2); Glucose 223 mg/dL (74-106); HDL Cholesterol 39 mg/dL (40-60); Potassium 4.8 mmol/L (3.5-5.1); Sodium 136 mmol/L (136-145); Total Protein 7.5 g/dL (6.4-8.2); Triglyceride 231 mg/dL (<150)
== END 2023-04-17 14:33 | disposition home or self-care (01) ==
LOC: NCHCN 14:32
PROVIDERS: PCP Physician Assistant; Visit Provider Physician Assistant
DX: E11.9 Type 2 diabetes mellitus without complications (principal); R79.89 Other specified abnormal findings of blood chemistry
CPT/HCPCS: 80053; 80061

== ENCOUNTER 2023-05-30 20:21 | Outpatient (REF) | payer MEDICARE, OTHER, SELFPAY ==
[2023-05-30 16:00] LABS: ALT 36 U/L (14-59); AST 24 U/L (15-37); Albumin 3.4 g/dL (3.4-5.0); Alkaline Phosphatase 131 U/L (46-116); Anion Gap 11.4 mmol/L (3-11); BUN 32 mg/dL (7-18); Bilirubin, Total 1.1 mg/dL (0.2-1.0); CO2 26.6 mmol/L (21.0-32.0); CREATININE 1.2 mg/dL (0.55-1.02); Calcium 9.4 mg/dL (8.5-10.1); Calculated LDL 90 mg/dL (<100); Chloride 100 mmol/L (98-107); Cholesterol 173 mg/dL (<200); Estimated GFR 49.92 (mL/min/1.73m2); Glucose 247 mg/dL (74-106); HDL Cholesterol 43 mg/dL (40-60); Magnesium 1.7 mg/dL (1.8-2.4); Potassium 4.5 mmol/L (3.5-5.1); Sodium 138 mmol/L (136-145); Total Protein 7.5 g/dL (6.4-8.2); Triglyceride 202 mg/dL (<150)
[2023-05-30 16:18] LABS: Hemoglobin A1C 10.4 % (<5.7)
[2023-05-30 16:29] LABS: Vitamin D 25 Total 30.6 ng/mL (30-100)
== END 2023-05-30 20:22 | disposition home or self-care (01) ==
LOC: NCHCN 20:21
PROVIDERS: PCP Physician Assistant; Visit Provider Physician Assistant
DX: I10 Essential (primary) hypertension (principal); E11.9 Type 2 diabetes mellitus without complications; E55.9 Vitamin D deficiency, unspecified
CPT/HCPCS: 80053; 80061; 82306; 83036; 83735

== ENCOUNTER 2023-06-19 03:37 | Outpatient (CLI) | payer MEDICARE, OTHER, SELFPAY ==
--- NOTE | 2023-06-19 11:23 | TELEFU_ITS ---
Date of service: 06/19/23 Time of Service: 10:00 Nutrition Note NOTE: Assessment Rand comes in for diabetes education. Her A1C was up at last appt with her HCP 05/30/23 to 10.4% Rand lives at home with her 46yo son who seems to be a stressor on Rand - called him a freeloader at this time. He has been sober a month but has had many issues and had mental disabilites. He does not help shop, cook, or prepare meals at home. Rand's passed 4 years ago and she feels like she has no more motivation now to make regular meals. I probably made 12 meals since he passed. Does not check her glucose at home anymore - copay for test strips is too expensive. She gets a 's pension from social security but was over for SNAP eligibility by ~$6 when she applied last. She has a very limited food budget. We discussed other areas than food that contribute to poor health/wt and glucose changes and she voiced that she has continuous stressors and tends to crave junk food/processed food. She barely sleeps - might sleep for 2 hours and then up wide awake and playing games on her phone. She has some teeth missing but states it isn't really a hinderance to her eating. Her PMH includes depression, edema, DMII, HLD , HTN Psioriasis, vit D deficiency. Her mag was slightly low at her last visit as well. At home for diabetes she takes glyburide and metformin and dulaglutide. note she also is on diuretic. She takes 1,000IU vitamin D at home, and KCl suppl ement. Her vitamin D increased modestly in about 9 months to just on the low end of normal. She doesn't eat breakfast currently - will have a diet pepsi (2-6 per day of these) and snack on crackers and other convenience items and have 2 deli sandwiches with meat and cheese around 1pm. Sandwiches tend to be a large part of her diet currently out of cost and convenience. We discussed her ambivalence towards being more involved with meal planning and preparation - depression seems to be a big piece of it, as well as her feelings of not needing to now that her isn't around. She ended up getting a little more interested in taking some action when we discussed how her tired feeling is partly due to chronic high glucose and how she is loosing more muscle than she needs to becasue she often doesn't meet her protein needs due to not prioritizing protein sources at meals and snacks. Nutrition Diagnosis -Inadequate protein intake (NI-52.1) due to not having regular meals or prioritizing protein choices when she snacks/gazes, as evidenced by information she shared about her typical eating patterns and food choices. -Excessive CHO intake (NI-53.2) due to snacking choices and frequenct sandwich consumption, as evidenced by information she shared about her typical eating patterns and food choices. -Inconsistent CHO intake (NI-53.4) due to skipping meals and not CHO counting or considering in meal planning, as evidenced by information she shared about her typical eating patterns and food choices -Inadequate fiber intake (NI-53.5) due to choosing ultraprocessed starch choices and low intake of produce and other high fiber foods, as evidenced by information she shared about her typical eating patterns and food choices -Inadequate vitamin intake (NI-54.1) of multiple vitamins (A,C,thiamin, K) due to limited variety, lack of produce intake amd other vitamin rich food sources,as evidenced by information she shared about her typical eating patterns and food choices -Inadequate mineral intake (NI-55.1) of multiple minerals (calcium,zinc, magnesium) due to limited variety, skipping meals, and lack of produce and other mineral rich food sources, as evidenced by information she shared about her typical eating patterns and food choices and lab values -Overweight/Obesity (NC-3.3) due to high carb intake, low fiber intake, sedentary activity level and impaired glucose metabolism, as evidenced by her BMI >40 and information she shared about her typical eating patterns and food choices -Food, nutrition and nutrition-related knowledge deficit, related to what foods are carbohyrates vs non carbohyrate choices and how much she should be planning for, as evidenced though verbal intake and assessment. -Not ready for diet/lifestyle change(NB-1.3), related to her note ambivalence toward eating better through menu planning and meal preparation, as evidenced by information gathered during our conversation. Intervention Stayed in the realm on motivational interviewing during most of the appt to help address ambivalence as normal process and to help find some motivation to make some small changes. She did agree to work some in managing her carb intake and we briefly reviewed carb choices and serving sizes. She will work on developing a small breakfast meal and we reviewed some suggeested food combinations. I suggested she take 2,000IU vitamin D instead of 1,000 due to lack of outside time, and increased adiposity and given current dose resulted in meager increase over 9 months. Suggest back to 1,000 during summer months. I also suggested she take Bcomplex vitamin and reviewed some options OTC Monitoring/evaluation Pt took my contact info should she have any questions -told to call directly She was interested in follow up appt that I offered and we will meet again 07/02 for follow up on breakfast goal, carb and protein intake, and getting back to testing glucose again (will alert provider she needs help in this area) Time Spent in Nutritional Counseling and Treatment: 60 minutes
== END 2023-06-19 03:38 | disposition home or self-care (01) ==
PROVIDERS: PCP Physician Assistant; Visit Provider Dietitian, Registered
DX: E11.9 Type 2 diabetes mellitus without complications (principal); Z71.3 Dietary counseling and surveillance
CPT/HCPCS: 00123; 97802

== ENCOUNTER → 2024-01-14 12:51 | Outpatient (BNVA) | payer MEDICARE, OTHER, SELFPAY | PROVIDERS: PCP Physician Assistant; Visit Provider Nurse Practitioner Gerontology | DX: N39.46 Mixed incontinence (principal) | CPT/HCPCS: 81003; 99213 ==

== ENCOUNTER 2024-04-20 16:53 | Outpatient (REF) | payer MEDICARE, OTHER, SELFPAY ==
[2024-04-20 16:30] LABS: Hemoglobin A1C 8.6 % (<5.7)
[2024-04-20 17:36] LABS: ALT 34 U/L (14-59); AST 30 U/L (15-37); Albumin 3.3 g/dL (3.4-5.0); Alkaline Phosphatase 105 U/L (46-116); Anion Gap 12.9 mmol/L (3-11); BUN 24 mg/dL (7-18); Bilirubin, Total 0.69 mg/dL (0.2-1.0); CO2 23.1 mmol/L (21.0-32.0); CREATININE 1.2 mg/dL (0.55-1.02); Calcium 9.2 mg/dL (8.5-10.1); Calculated LDL 123 mg/dL (<100); Chloride 103 mmol/L (98-107); Cholesterol 221 mg/dL (<200); Estimated GFR 49.61 (mL/min/1.73m2); Glucose 271 mg/dL (74-106); HDL Cholesterol 44 mg/dL (40-60); Potassium 4.6 mmol/L (3.5-5.1); Sodium 139 mmol/L (136-145); Total Protein 7.2 g/dL (6.4-8.2); Triglyceride 270 mg/dL (<150)
== END 2024-04-20 16:54 | disposition home or self-care (01) ==
LOC: NCHCN 16:53
PROVIDERS: PCP Physician Assistant; Visit Provider Physician Assistant
DX: E11.9 Type 2 diabetes mellitus without complications (principal)
CPT/HCPCS: 80053; 80061; 83036

== ENCOUNTER 2025-01-07 14:21 | Emergency (ER) | payer MEDICARE, OTHER, SELFPAY ==
--- NOTE | 2025-01-07 14:15 | RT.EKG_ITS ---
APPROVED REPORT Exam: Resting ECG Reason for Exam: dizziness Patient Location: E HR:72 bpm ECG Measurements Heart Rate 72 AXIS OH 161 P 52 QRSd 119 QRS 4 QT 427 T 29 QTc 465 Conclusion Sinus rhythm, rate 72 No interval abnormalities Incomplete RBBB, occasional PACs No STEMI No priors available for comparison
[2025-01-07 14:25] VITALS: BP 153/70; PULSE 72; RESP 16; TEMP 36.1; O2SAT 98
--- NOTE | 2025-01-07 15:01 | W.ED.GENAD ---
Discharge Plan Disposition Patient Disposition: Home Condition: Stable Discharge Details Clinical Impression: Acute UTI, Vertigo Primary Care Provider: Michael Pal ED Provider: Karley Carr Home Meds and New Rx's Prescriptions: New cefpodoxime 200 mg tablet 200 mg PO BID 7 Days Qty: 14 0RF Rx Instructions: must administer with a meal/food meclizine 25 mg tablet 25 mg PO BID PRNQty: 10 0RF No Action anastrozole 1 mg tablet 1 mg PO DAILY furosemide 40 mg tablet 40 mg PO DAILY atorvastatin [Lipitor] 20 mg tablet 20 mg PO DAILY cholecalciferol (vitamin D3) 25 mcg (1,000 unit) capsule 25 mcg PO DAILY citalopram [Celexa] 40 mg tablet 40 mg PO DAILY glyburide 5 mg tablet 10 mg PO BID metoprolol succinate 100 mg tablet extended release 24 hr 100 mg PO DAILY valsartan 320 mg tablet 320 mg PO DAILY nystatin 100,000 unit/gram powder 1 applic topical BID Trulicity 1.5 mg/0.5 mL pen injector 1.5 mg subcut QWEEK potassium chloride 10 mEq tablet extended release 10 meq PO BID lidocaine [Lidoderm] 1 PATCH patch 1 patch Topical Q24H Qty: 4 0RF acetaminophen 500 mg tablet 1,000 mg PO TID Qty: 90 0RF ibuprofen 600 mg tablet 600 mg PO TID PRN (Reason: pain) Qty: 90 0RF metformin 500 mg tablet 500 mg PO BID Discharge Instructions Instructions: Urinary Tract Infection, Adult ED, Vertigo ED Additional Instructions: You were seen in the emergency department today for evaluation of vertigo, fatigue, and general malaise. In our department had a full physical examination performed, had laboratory studies that were reassuring, and had a CT scan of your brain that did not show any abnormalities to explain your dizziness. Your urine was concerning for infection and you received your first dose of antibiotics today. You had the remainder of your course of antibiotics sent to your pharmacy, please take all this medication until it is gone, even if you start to feel better. I sent you a short course of medicine for vertigo, which you can take as needed. Please maintain good hydration and nutrition, and please follow-up with your primary care provider in the next few days to discuss this visit and any symptoms that change, worsen, or persist. Thank you for allowing us to be part of your care. HPI General Mode of arrival: wheelchair. Date/Time Provider Initiated Documentation: 01/07/25 14:23. Limitations to Documentation: no limitations. Information obtained by: patient, family and old records reviewed. HPI Narrative: This is a 69-year-old female patient with a history of diabetes, hypertension, hyperlipidemia, breast cancer, presenting for evaluation of lightheadedness and vertigo with nausea and vomiting. The patient reports that she has felt fairly unwell all week, citing specifically increased fatigue and malaise. She states that she has not taken any of her medications this week, and historically does not reliably take her Lasix or her potassium due to the urinary frequency that it causes. This morning she woke up and felt very dizzy, states that she feels like the room is spinning, and this caused an episode of vomiting. She does note that occasionally this gets better when she lays down and closes her eyes, but does not seem to worsen with other position changes. She has not had a fever, has not had any change in her oral intake, denies abdominal pain, chest pain, shortness of breath. She endorses an occasional cough, states that she has not noted any worsening of her peripheral edema compared to baseline. She is accompanied by her daughters, who reports that the fatigue specifically is very out of the ordinary for her. Related Data Home Medications ?Medication ?Instructions ?Recorded ?Confirmed citalopram 40 mg tablet (Celexa) 40 mg PO DAILY 03/12/19 01/07/25 glyburide 5 mg tablet 10 mg PO BID 03/12/19 01/07/25 lidocaine 5 % topical patch 1 patch topical Q24H #4 patches 09/15/19 01/07/25 (Lidoderm) atorvastatin 20 mg tablet (Lipitor) 20 mg PO DAILY 01/11/21 01/07/25 furosemide 40 mg tablet 40 mg PO DAILY 01/11/21 01/07/25 metoprolol succinate 100 mg 100 mg PO DAILY 11/22/21 01/07/25 tablet,extended release 24 hr nystatin 100,000 unit/gram topical 1 applic topical BID 11/22/21 01/07/25 powder valsartan 320 mg tablet 320 mg PO DAILY 11/22/21 01/07/25 anastrozole 1 mg tablet 1 mg PO DAILY 04/18/22 01/07/25 dulaglutide 1.5 mg/0.5 mL 1.5 mg subcut QWEEK 05/15/22 01/07/25 subcutaneous pen injector (Trulicity) potassium chloride 10 mEq 10 meq PO BID 05/15/22 01/07/25 tablet,extended release acetaminophen 500 mg tablet 1,000 mg (2 x 500 mg) PO TID #90 07/03/22 01/07/25 tabs ibuprofen 600 mg tablet 600 mg PO TID PRN pain #90 tabs 07/03/22 01/07/25 cholecalciferol (vitamin D3) 25 25 mcg PO DAILY 01/08/23 01/07/25 mcg (1,000 unit) capsule cefpodoxime 200 mg tablet 200 mg PO BID 1 week #14 tabs 01/07/25 meclizine 25 mg tablet 25 mg PO BID PRN #10 tabs 01/07/25 metformin 500 mg tablet 500 mg PO BID 01/07/25 01/07/25 Previous Rx's ?Medication ?Instructions ?Recorded lidocaine 5 % topical patch 1 patch topical Q24H #4 patches 09/15/19 (Lidoderm) acetaminophen 500 mg tablet 1,000 mg (2 x 500 mg) PO TID #90 07/03/22 tabs ibuprofen 600 mg tablet 600 mg PO TID PRN pain #90 tabs 07/03/22 cefpodoxime 200 mg tablet 200 mg PO BID 1 week #14 tabs 01/07/25 meclizine 25 mg tablet 25 mg PO BID PRN #10 tabs 01/07/25 Allergies Allergy/AdvReac Type Severity Reaction Status Date / Time Beta-Adrenergic Agents Allergy Unknown Hives, Verified 01/07/25 14:29 sore throat enalapril maleate (From Allergy Unknown Hives Verified 01/07/25 14:29 Vasotec) enalaprilat dihydrate (From Allergy Unknown Hives Verified 01/07/25 14:29 Vasotec) Fish Containing Products Allergy Unknown N/V Verified 01/07/25 14:29 orange juice Allergy Unknown Hives Verified 01/07/25 14:29 Sulfa (Sulfonamide Allergy Unknown Hives Verified 01/07/25 14:29 Antibiotics) General Stated Complaint: Dizzy/Sync MELISA: 3 Exam Narrative Exam Narrative: Gen: awake and alert, in no apparent distress. Appears well nourished. HEENT: Pupils are reactive to light, very slightly unequal, 2 mm on the right, 3 mm on the left, EOMs full and with extinguishable horizontal nystagmus with extremes of leftward gaze. External ears and nose normal, mucous membranes moist. Neck: Supple, full range of motion, no observable masses Lungs: No increased work of breathing, lung sounds clear and equal bilaterally without wheezes, rhonchi, or rales. CV: Heart with regular rate and rhythm, no murmurs auscultated. Strong and symmetrical radial pulses. Abdomen: Soft, nondistended, minimal tenderness to palpation in the left upper quadrant, no rigidity, rebound tenderness, or guarding. MSK: No joint swelling, no redness. Full ROM without limitation, no external traumatic findings. 2+ bilateral peripheral edema to the lower extremities, symmetrical Skin: No rashes or lesions to visualized skin. Normal color, warm, and dry. Neuro: Cranial nerves II-XII intact and symmetrical bilaterally with the exception of the subtle pupil changes noted above. 5/5 strength in all muscle groups x4 extremities. No sensory deficits. Psych: Appropriate for situation. Course Vital Signs Vital signs: Vital Signs Temperature 36.1 C L 01/07/25 14: Pulse 72 01/07/25 14:25 Respiratory Rate 16 01/07/25 14: Blood Pressure 153/70 H 01/07/25 14:25 Pulse Oximetry 98 01/07/25 14:25 Temperature 36.1 C L 01/07/25 14:25 Pulse 72 01/07/25 14:25 Respiratory Rate 16 01/07/25 14: Blood Pressure 153/70 H 01/07/25 14:25 Pulse Oximetry 98 01/07/25 14:25 Pain Level 0 01/07/25 14:25 Medical Decision Making This is a 69-year-old female patient presenting for evaluation of dizziness/vertigo, nausea with vomiting, and general malaise. Differential includes but is not limited to intracranial abnormalities including posterior circulation stroke, hemorrhage, mass effect, also considered vascular abnormalities including dissection and aneurysm. Considered metabolic and electrolyte derangements, anemia, hypothyroidism, peripheral vertigo including BPPV, M?ni?re's disease, labyrinthitis. I considered dehydration, kidney injury, liver disease. Considered heart failure exacerbation, ACS, arrhythmia, vasovagal syndrome, orthostasis. The patient does not have a concerning or peritonitic abdominal examination to significantly increase my concern for intra-abdominal pathology, and is without infectious findings such as fever, dysuria, diarrhea, or upper respiratory symptoms. We will provide the patient with a dose of Zofran and a small bolus of IV fluids. I did obtain an EKG which shows a sinus rhythm with occasional PACs, no STEMI or interval abnormalities, no priors available for comparison. Will obtain labs to include CBC, CMP, magnesium, troponin, BNP, TSH, and given the vertiginous symptoms and pupil changes we will proceed with CTA of the brain and neck to evaluate for intracranial abnormalities. - I independently interpreted the laboratory studies, which show no significant leukocytosis, anemia, or thrombocytopenia. The chemistry panel is without evidence of electrolyte abnormality, kidney dysfunction, or liver injury. I do note that the BUN to creatinine ratio is exactly 22 1, which may represent very mild dehydration. INR 1.0, glucose is only slightly elevated at 249 consistent with her history of diabetes. Troponin is negative and without interval increase in 1 hour delta recheck. BNP is very slightly elevated above normal at 487. Lipase is low and TSH is within normal limits. CTA was reviewed by myself and discussed with the radiologist. She does have some chronic anatomical findings noted by the radiologist, but has no evidence of vascular stenosis, hemorrhage, mass effect, or obvious infarct territories. Urinalysis was reviewed by myself and is noted to be nitrate positive, packed with bacteria, without significant leukocytosis. However, given the patient's generalized systemic unwellness, I feel it reasonable to pursue treatment. This urine will be sent for culture, and I provided the patient with a dose of ceftriaxone. Her vertigo persists, and in the absence of an identified central cause and with a history of peripheral vertigo I feel it reasonable to provide the patient with a dose of meclizine. She also received Tylenol for a mild headache. On reevaluation, the patient reports improvement in her dizziness, was able to tolerate a full meal without ongoing nausea or vomiting, and I sent prescriptions for cefpodoxime for her UTI and meclizine as needed for peripheral vertigo to her pharmacy. At this time, the patient has had a full medical evaluation and is safe for discharge to home. They are hemodynamically stable, ambulatory, and tolerating PO. They are understanding of the follow-up plan and return precautions. They left our facility without incident. Karley Carr MD [facility] All Active Problems (Updated 01/07/25 @ 18:10 by Karley Carr MD) Vertigo (Acute) Acute UTI (Acute) Trigger finger, left ring finger (Acute) Mixed stress and urge urinary incontinence (Acute) Hypertension (Chronic) Depression (Chronic) Hyperlipidemia (Acute) Diabetes (Chronic) Screening for colon cancer (Acute) Fatigue (Acute) Arthritis (Acute) Family history of colon cancer (Acute) Medical History (Updated 01/07/25 @ 18:10 by Karley Carr MD) Edema Breast cancer Psoriasis ovarian cancer, stage 1A Diabetes Surgical History Hx of lumpectomy Oophrectomy, Both Abdominal hysterectomy 1996 Cholecystectomy Family History Mother Essential hypertension Myocardial infarction Father Emphysema of lung Maternal Aunt Personal history of malignant neoplasm colon Sister Rheumatoid arthritis Social History Smoking/Tobacco Use Status: Never Smoking risk assessment performed?: Yes Alcohol Intake: never Drug use: Never Substance use type: does not use Household members: spouse Do you feel safe at home: Yes Do you feel safe in your relationship?: Yes Female Reproductive History Menstrual Menopause type: surgical History History 3 Para 3 Hx # Term Pregnancies Multiple births Hx # Pregnancies Ectopic pregnancies AB induced Hx Number of Living Children AB spontaneous
[2025-01-07 15:28] LABS: Abs Immature Grans 0.05 10^3/uL (0.0-0.06); HCT 39.2 % (36.0-46.0); HGB 13.0 g/dL (11.2-15.7); Immature Grans % 0.6 %; MCH 29.6 pg (27.0-33.0); MCHC 33.2 % (32.0-36.0); MCV 89 fL (80-95); MPV 10.2 fL (8.0-11.0); Platelet Count 160 10^3/uL (130-400); RBC 4.39 10^6/uL (3.93-5.22); RDW 13.5 % (11.7-14.6); RDW-SD 44.1 fL; WBC 8.20 10^3/uL (4.4-10.8)
[2025-01-07 15:34] VITALS: BP 168/85; PULSE 71; PULSE 72; RESP 19; O2SAT 97
[2025-01-07] MEDS: Ondansetron 4 MG/2 ML VIAL IVP (15:36)
[2025-01-07] MEDS: Lactated Ringers 500 ML IV (15:37)
[2025-01-07 15:44] LABS: INR 1.0 (0.9-1.1); Prothrombin Time 10.4 sec (9.1-11.1)
[2025-01-07 15:45] VITALS: BP 166/85; PULSE 71; RESP 24; O2SAT 92
[2025-01-07 15:54] LABS: ALT 34 U/L (14-59); AST 26 U/L (15-37); Albumin 3.2 g/dL (3.4-5.0); Alkaline Phosphatase 120 U/L (46-116); Anion Gap 8.9 mmol/L (3-11); BUN 20 mg/dL (7-18); Bilirubin, Total 0.6 mg/dL (0.2-1.0); CO2 27.1 mmol/L (21.0-32.0); Calcium 9.2 mg/dL (8.5-10.1); Chloride 103 mmol/L (98-107); Estimated GFR 61.36 (mL/min/1.73m2); Glucose 249 mg/dL (74-106); Lipase 68 U/L (<78); Magnesium 1.8 mg/dL (1.8-2.4); NT-proBNP 487 pg/mL (<300); Potassium 4.4 mmol/L (3.5-5.1); Sodium 139 mmol/L (136-145); TSH (W/Ref FT4) 2.39 uIU/mL (0.36-3.74); Total Protein 7.4 g/dL (6.4-8.2); Troponin I 19 ng/L (<or=51)
[2025-01-07] MEDS: Normal Saline - Diluent 50 ML VIAL IJ (16:09)
[2025-01-07] MEDS: Normal Saline Flush 10 ML SYR IVP (16:09)
[2025-01-07] MEDS: Omnipaque 350 MG/ML 500 ML BTL-Imaging package IJ (16:10)
--- NOTE | 2025-01-07 16:30 | DI.CT_ITS ---
Exam(s) CT BRAIN NECK CTA EXAM: CT BRAIN NECK CTA CLINICAL HISTORY: vertigo, slightly unequal pupils. TECHNIQUE: Imaging Protocol: Axial CT angiography was performed with multi- slice acquisition and multi-planar and/or 3D reconstructions. CONTRAST MATERIAL: Intravenous: Omnipaque 350 Contrast volume:70 mL COMPARISON: CT HEAD WITHOUT CONTRAST from 05/02/2015 FINDINGS: CTA Neck W: Aortic arch anatomy: The aortic arch anatomy is conventional and there is no significant stenosis at the origin of the great vessels off of the aortic arch. No intimal flap evident. Anterior circulation: Both common carotid arteries ascend with normal luminal diameters. At the level the carotid bulbs and proximal internal carotid arteries there is minimal plaque without hemodynamically significant stenosis evident. In the upper neck the course of the internal carotid arteries is tortuous and medial-retropharyngeal prior to entering the skull base-carotid canals but without evidence of significant stenosis nor dissection. The ICAs are patent in the skull base-carotid canals. Posterior circulation: Both vertebral arteries originate in conventional fashion off of the subclavian arteries and there is no obvious stenosis at the origin of the vertebral arteries. Both vertebral arteries exhibit mildly developmentally thin diameters within the foramen transversarium. Both vertebral arteries contribute to the formation of the basilar artery at the skull base. CTA Brain W: Anterior circulation: Both internal carotid arteries are patent in the skull base-carotid canals as well as within the cavernous sinuses. The supraclinoid aspects of the ICAs are patent. Both A1 segments are patent as are the anterior cerebral arteries and there is no evidence of aneurysm at the level of the anterior communicating artery. Both middle cerebral arteries are patent with no evidence of significant stenosis nor intraluminal thrombus. There also no aneurysms of these vessels. Posterior circulation: The basilar artery ascends in the midline without significant stenosis. Distally it terminates as opacified bilateral superior cerebellar arteries. Both posterior cerebral arteries are opacified by posterior communicating arteries on both sides of the [id number]-persistent circulation.. There is no evidence of aneurysm at the tip of the basilar artery nor elsewhere in the [id number]. CT BRAIN: There is no evidence of intracranial hemorrhage, mass effect, or shift of midline structures. There are no extra-axial fluid collections. Ventricles are not enlarged or shifted. There are no ring enhancing lesions in the brain and no abnormal meningeal enhancement. 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 This is a benign skull condition. There is also again noted heavy calcification in the falx cerebri. There is also a retention cyst or polyp in the posterior aspect of the right maxillary sinus which measures 1.5 x 1.4 cm. There is no associated fluid level. The remainder of the paranasal sinuses are clear as are the ethmoidal air cells. There are no mastoid effusions. IMPRESSION: 1. Patent carotid arteries in the neck. No hemodynamically significant stenosis the common carotid and extracranial internal carotid arteries. The upper neck course of both internal carotid arteries is noted to be medial-retropharyngeal. 2. Patent vertebral arteries. The vertebral and basilar arteries are uniformly thinner than typical. This is because of persistent circulation of the brain where by the posterior cerebral arteries are supplied by posterior communicating arteries on both sides the [id number]. This is deve lopmental. 3. Patent intracranial arteries. 4. No acute intracranial findings. No ring enhancing lesions in the brain and no abnormal meningeal enhancement. Report called by myself to me are provider 01/07/2025 at 5 p.m. RADIATION DOSE DELIVERED: 2,181.89mGy.cm Total DLP DATA REPOSITORY: All CT scans at this facility are submitted to the National Radiology Data Registry (NRDR) Dose Index Registry (DIR) with the [employer] ([employer]). RADIATION OPTIMIZATION: All CT scans at this facility use at least one of these dose optimization techniques: automated exposure control; mA and/or kV adjustment per patient size (includes targeted exams where dose is matched to clinical indication); or iterative reconstruction.
[2025-01-07] MEDS: Acetaminophen 500 MG TAB 1000 MG PO (16:54)
[2025-01-07 16:55] VITALS: BP 175/84; PULSE 78; PULSE 84; RESP 22
[2025-01-07 17:14] VITALS: RESP 16
[2025-01-07] MEDS: Meclizine 25 MG TAB PO (17:18)
[2025-01-07 17:26] LABS: Glucose >=1000 mg/dL (Negative)
[2025-01-07 17:32] LABS: C & S Indicated? No; RBC 0-2 HPF (0-2)
[2025-01-07 17:35] LABS: Troponin I 21 ng/L (<or=51)
[2025-01-07] MEDS: cefTRIAXone 1 GM/50 ML BAG IVPB (17:59)
[2025-01-07 18:41] VITALS: BP 178/64; PULSE 79; RESP 16; O2SAT 97
--- NOTE | 2025-01-09 08:11 | NUR.NOTE ---
Accessed Pt chart to document the antibiotics prescribed. The antibiotics were documented on the Specimen Report. Report given to providers.
--- NOTE | 2025-01-09 10:21 | NUR.NOTE ---
Accessed Pt chart to document antibiotics prescribed on the Specimen Report. Report was given to providers.
== END 2025-01-07 19:42 | disposition home or self-care (01) ==
PROVIDERS: Emergency Provider Emergency Medicine; PCP Physician Assistant
DX: N39.0 Urinary tract infection, site not specified (principal); R42 Dizziness and giddiness; R11.2 Nausea with vomiting, unspecified; E11.9 Type 2 diabetes mellitus without complications; I10 Essential (primary) hypertension
CPT/HCPCS: 36415; 36416; 70496; 70498; 80053; 82962; 83690; 87077; 93005; 96361; 96365; 96366; 96375; 99285; 81003; 81015; 83735; 83880; 84443; 84484; 85025; 85610; 87086; 87186; 93010; 99284; J0696; J2405

== ENCOUNTER → 2025-01-13 15:17 | Outpatient (BNVA) | payer MEDICARE, OTHER, SELFPAY | PROVIDERS: PCP Physician Assistant; Referring Provider Physician Assistant; Visit Provider Nurse Practitioner Gerontology | DX: N39.46 Mixed incontinence (principal) | CPT/HCPCS: 99213; 51798 ==